=== PATIENT | female | born 1955 | race African-American/Black ===

== ENCOUNTER 2018-02-21 09:26 | Inpatient (IN) | payer MEDICAID ==
[~2018-02-21] VITALS: Ht 157.5 cm; Wt 136.1 kg
[2018-02-21] MEDS ORDERED: MAX25 MT (10:00)
[2018-02-21] MEDS ORDERED: CALC-30 PO (10:00)
[2018-02-21] MEDS ORDERED: LOSA50TA20 PO (10:00)
[2018-02-21] MEDS ORDERED: VERA240C2 PO (10:00)
[2018-02-21] MEDS ORDERED: HYDR-4135 PO (10:00)
[2018-02-21] MEDS ORDERED: ASPI-1158 PO (10:00)
[2018-02-21] MEDS ORDERED: ISOS40TA12 PO (10:00)
[2018-02-21] MEDS ORDERED: DICL25TA2 PO (10:00)
[2018-02-21] MEDS ORDERED: CLON0.3T PO (10:00)
[2018-02-21] MEDS ORDERED: VITA400C73 PO (10:00)
[2018-02-21] MEDS ORDERED: IPRATROPIUM/ALBUTEROL 0.5-3(2.5)MG/3ML NEB HHN ONE (11:15)
[2018-02-21 11:36] LABS: CLARITY URINE CLEAR (CLEAR); COLOR URINE YELLOW (YELLOW); KETONES URINE NEGATIVE (NEGATIVE); LEUKOCYTE ESTERASE URINE NEGATIVE (NEGATIVE); NITRITE URINE NEGATIVE (NEGATIVE); OCCULT BLOOD URINE NEGATIVE (NEGATIVE); PH URINE 7.5 (4.5-8.0); PROTEIN URINE NEGATIVE (NEGATIVE); SPECIFIC GRAVITY URINE 1.013 (1.005-1.030); UROBILINOGEN URINE 0.2 E.U./dL (0.2-1.0)
[2018-02-21 12:39] LABS: BASOPHILS % 0.6 % (0.0-2.0); EOSINOPHILS % 0.1 % (0.0-5.0); HEMATOCRIT. 35.4 % (36.0-48.0); HEMOGLOBIN. 11.3 g/dL (12.0-16.0); MEAN CORPUSCULAR HEMOGLOBIN 27.5 pg (28.0-32.0); MEAN CORPUSCULAR VOLUME 86.2 fL (81.0-99.0); MEAN PLATELET VOLUME 9.4 fl (7.4-10.4); MONOCYTES % 6.2 % (2.0-8.0); NEUTROPHILS % 83.1 % (40.0-76.0); PLATELET 277 x1000/uL (130-400); RED CELL DISTRIBUTION WIDTH 15.3 % (11.6-14.6)
[2018-02-21 12:47] LABS: CHLORIDE 107 mEq/L (98-107)
[2018-02-21 12:49] LABS: PARTIAL THROMBOPLASTIN TIME 26.4 sec (23.4-31.0); PROTHROMBIN TIME 10.2 sec (9.1-11.1)
[2018-02-21] MEDS ORDERED: POTASSIUM CHLORIDE 20MEQ TABLET SR PO ONE (13:45)
[2018-02-21] MEDS ORDERED: IOHEXOL-350 100 ML BOTTLE ONE (15:17)
[2018-02-21] MEDS ORDERED: HYDRALAZINE 20MG/ML VIAL IV ONE (15:30)
[2018-02-21] MEDS ORDERED: ONDANSETRON HCL 4MG/2ML INJ IV PRN (15:30)
[2018-02-21] MEDS ORDERED: IPRATROPIUM/ALBUTEROL 0.5-3(2.5)MG/3ML NEB HHN PRN (15:30)
[2018-02-21] MEDS ORDERED: ACETAMINOPHEN 325MG TABLET PO PRN (15:30)
[2018-02-21] MEDS ORDERED: CLONIDINE 0.3MG TABLET PO ONE (15:30)
[2018-02-21 15:58] LABS: LDL CHOLESTEROL 71 mg/dL (5-100)
[2018-02-21 15:59] LABS: HDL CHOLESTEROL 63 mg/dL (40-59)
[2018-02-21 16:00] LABS: T4 FREE 2.21 ng/dL (0.76-1.46)
[2018-02-21 21:15] VITALS: BP 169/59
[2018-02-21 21:59] VITALS: BP 169/59
[2018-02-21] MEDS ORDERED: ocular lubricant (22:04)
[2018-02-21] MEDS ORDERED: TRAM50TA3 PO (22:04)
[2018-02-21] MEDS ORDERED: POTA10CA42 PO (22:04)
[2018-02-21] MEDS ORDERED: PRAV20TA57 PO (22:04)
[2018-02-21] MEDS ORDERED: MULT-1146 PO (22:06)
[2018-02-21 22:21] LABS: *BENZODIAZEPINES SCREEN URINE NEGATIVE (NEGATIVE); *COCAINE SCREEN URINE NEGATIVE (NEGATIVE); METHADONE URINE SCREEN NEGATIVE (NEGATIVE); OPIATES URINE SCREEN NEGATIVE (NEGATIVE)
[2018-02-21 22:22] LABS: *AMPHETAMINES SCREEN URINE NEGATIVE (NEGATIVE); *BARBITURATES SCREEN URINE NEGATIVE (NEGATIVE); CANNABINOID URINE SCREEN NEGATIVE (NEGATIVE); PHENCYCLIDINE URINE SCREEN NEGATIVE (NEGATIVE)
[2018-02-21] MEDS: FUROSEMIDE 40MG/4ML VIAL IVP SCH (22:30)
[2018-02-21] MEDS: AMLODIPINE 5MG TABLET PO SCH (23:11)
[2018-02-21 23:51] VITALS: BP 180/83
[2018-02-22 04:32] VITALS: BP 179/79
[2018-02-22] MEDS: CLONIDINE 0.1MG TABLET PO PRN ×2 (05:54→12:33)
[2018-02-22 08:00] VITALS: BP 188/88
[2018-02-22] MEDS: POTASSIUM CHLORIDE 20MEQ TABLET SR PO SCH (08:24)
[2018-02-22] MEDS: FUROSEMIDE 40MG/4ML VIAL IVP SCH (08:25)
[2018-02-22] MEDS: AMLODIPINE 5MG TABLET PO SCH ×2 (08:25→20:54)
[2018-02-22] MEDS ORDERED: LOSARTAN POTASSIUM 50 MG TABLET PO NR (08:51)
[2018-02-22] MEDS ORDERED: LOSARTAN POTASSIUM 50 MG TABLET PO SCH (09:00)
[2018-02-22 09:47] LABS: BASOPHILS % 0.3 % (0.0-2.0); EOSINOPHILS % 0.6 % (0.0-5.0); HEMATOCRIT. 35.3 % (36.0-48.0); HEMOGLOBIN. 11.3 g/dL (12.0-16.0); LYMPHOCYTES % 24.2 % (20.0-50.0); MEAN CORPUSCULAR HEMOGLOBIN 27.5 pg (28.0-32.0); MEAN CORPUSCULAR VOLUME 86.2 fL (81.0-99.0); MONOCYTES % 7.6 % (2.0-8.0); NEUTROPHILS % 67.3 % (40.0-76.0); PLATELET 246 x1000/uL (130-400)
[2018-02-22 09:53] LABS: CHLORIDE 108 mEq/L (98-107)
[2018-02-22 12:00] VITALS: BP 179/83
[2018-02-22] MEDS: HYDRALAZINE HCL 100MG TABLET PO SCH ×2 (13:15→21:00)
[2018-02-22] MEDS ORDERED: POTASSIUM CHLORIDE 20MEQ TABLET SR PO NR (14:30)
[2018-02-22 16:00] VITALS: BP 175/80
[2018-02-22] MEDS ORDERED: OMEPRAZOLE 20MG CAPSULE EXTENDED RELEASE PO NR (16:15)
[2018-02-22] MEDS ORDERED: THROAT LOZENGES-BENZOCAINE/MENTH/CETYLPYRD CL LOZENGES MM PRN (16:15)
[2018-02-22] MEDS ORDERED: CLONIDINE 0.2MG TABLET PO PRN (18:00)
[2018-02-22 20:31] VITALS: BP 165/76
[2018-02-22] MEDS: PROPRANOLOL HCL 20MG TABLET PO SCH (20:55)
[2018-02-22] MEDS: CLONIDINE 0.1MG TABLET PO SCH (21:00)
[2018-02-23 00:30] VITALS: BP 172/87
[2018-02-23 04:40] VITALS: BP 162/82
[2018-02-23] MEDS: HYDRALAZINE HCL 100MG TABLET PO SCH ×2 (05:31→14:00)
[2018-02-23] MEDS: CLONIDINE 0.1MG TABLET PO SCH (05:31)
[2018-02-23 08:00] VITALS: BP 178/72
[2018-02-23] MEDS ORDERED: LOSARTAN POTASSIUM 100 MG TABLET PO SCH (09:00)
[2018-02-23] MEDS ORDERED: METHIMAZOLE 5MG TABLET PO SCH (09:00)
[2018-02-23] MEDS ORDERED: FUROSEMIDE 40MG TABLET PO SCH (09:00)
[2018-02-23] MEDS: POTASSIUM CHLORIDE 20MEQ TABLET SR PO SCH (09:05)
[2018-02-23] MEDS: AMLODIPINE 5MG TABLET PO SCH (09:05)
[2018-02-23] MEDS: PROPRANOLOL HCL 20MG TABLET PO SCH (09:07)
[2018-02-23] MEDS ORDERED: ENOXAPARIN 40MG/0.4ML SYR SUBCUT SCH (09:30)
[2018-02-23 12:00] VITALS: BP 171/77
[2018-02-23 13:00] LABS: BASOPHILS % 1.3 % (0.0-2.0); EOSINOPHILS % 0.9 % (0.0-5.0); HEMATOCRIT. 35.2 % (36.0-48.0); HEMOGLOBIN. 11.2 g/dL (12.0-16.0); MEAN CORPUSCULAR HEMOGLOBIN 27.6 pg (28.0-32.0); MEAN CORPUSCULAR VOLUME 86.8 fL (81.0-99.0); MEAN PLATELET VOLUME 8.8 fl (7.4-10.4); MONOCYTES % 9.1 % (2.0-8.0); NEUTROPHILS % 70.7 % (40.0-76.0); PLATELET 236 x1000/uL (130-400); RED BLOOD CELL COUNT 4.06 mill/uL (4.2-5.4)
[2018-02-23 13:03] LABS: CHLORIDE 107 mEq/L (98-107)
[2018-02-23] MEDS ORDERED: CLONIDINE 0.2MG TABLET PO SCH (14:00)
[2018-02-24 09:06] LABS: LUTEINIZING HORMONE 22.2 mIU/mL (.)
[2018-03-08 13:06] LABS: ANDROSTENEDIONE <10 ng/dL (41-262); FOLICLE STIMULATING HORMONE 26.6 mIU/mL (.); TESTOSTERONE FREE 0.7 pg/mL (0.0-4.2)
== END 2018-02-23 16:15 | disposition home or self-care (01) | DRG 199 ==
LOC: ER 13:23 → 6WST 13:31 → EDBEDREQTM 13:34 → EDBEDREQ 13:34 → ENRESERV 19:47
PROVIDERS: ADMIT Internal Medicine; ATTEND Internal Medicine
DX: I16.0 Hypertensive urgency (principal); J96.00 Acute respiratory failure, unspecified whether with hypoxia or hypercapnia; R65.11 Systemic inflammatory response syndrome (SIRS) of non-infectious origin with acute organ dysfunction; E05.20 Thyrotoxicosis with toxic multinodular goiter without thyrotoxic crisis or storm; Z68.43 Body mass index [BMI] 50.0-59.9, adult; E66.01 Morbid (severe) obesity due to excess calories; K21.9 Gastro-esophageal reflux disease without esophagitis; H26.9 Unspecified cataract; E87.6 Hypokalemia; I11.9 Hypertensive heart disease without heart failure; D64.9 Anemia, unspecified; E78.5 Hyperlipidemia, unspecified; M19.90 Unspecified osteoarthritis, unspecified site; Z79.82 Long term (current) use of aspirin; Z79.899 Other long term (current) drug therapy
CPT/HCPCS: 36415; 71045; 71275; 76536; 80048; 80061; 80305; 82088; 82157; 82533; 83001; 83002; 83036; 83520; 83735; 83880; 84402; 84403; 84439; 84443; 84481; 84484; 86376; 93005; 93306; 93971; 94640; 96374; 99285; J0360; J1650; J1940; J7620; Q9967

== ENCOUNTER 2019-02-15 17:25 | Inpatient (IN) | payer MEDICAID ==
[~2019-02-15] VITALS: Ht 157.5 cm; Wt 116.2 kg
[~2019-02-15 17:25] MED LIST: ASPI-1158 PO; CALC-30 PO; CLON0.3T PO; DICL25TA2 PO; HYDR-4135 PO; ISOS40TA12 PO; LOSA50TA41 PO; MAX25 MT; MULT-1146 PO; POTA10CA42 PO; PRAV20TA57 PO; TRAM50TA3 PO; VERA240C2 PO; VITA400C73 PO; ocular lubricant
[2019-02-15] MEDS ORDERED: HYDRALAZINE HCL 100MG TABLET PO STA (19:41)
[2019-02-15] MEDS ORDERED: KETOROLAC 30MG/ML VIAL IV STA (19:41)
[2019-02-15] MEDS ORDERED: HYDROCODONE/ACETAMINOPHEN 5/325MG TABLET PO STA (19:41)
[2019-02-15 21:47] LABS: BASOPHILS % 1.4 % (0.0-2.0); EOSINOPHILS % 0.4 % (0.0-5.0); HEMATOCRIT. 33.8 % (36.0-48.0); HEMOGLOBIN. 10.9 g/dL (12.0-16.0); LYMPHOCYTES % 23.3 % (20.0-50.0); MEAN CORPUSCULAR HEMOGLOBIN 26.4 pg (28.0-32.0); MEAN CORPUSCULAR VOLUME 81.6 fL (81.0-99.0); MEAN PLATELET VOLUME 8.7 fl (7.4-10.4); MONOCYTES % 5.2 % (2.0-8.0); NEUTROPHILS % 69.7 % (40.0-76.0); PLATELET 256 x1000/uL (130-400); RED BLOOD CELL COUNT 4.14 mill/uL (4.2-5.4)
[2019-02-15 21:51] LABS: CHLORIDE 107 mEq/L (98-107)
[2019-02-15 22:02] LABS: T4 FREE 1.65 ng/dL (0.76-1.46)
[2019-02-15] MEDS ORDERED: ASPIRIN 325MG TABLET PO ONE (22:30)
[2019-02-16 08:20] VITALS: BP 201/78
[2019-02-16 09:00] VITALS: BP 201/78
[2019-02-16] MEDS ORDERED: METH10TA7 MT (09:28)
[2019-02-16] MEDS ORDERED: DOCU-138 MT (09:28)
[2019-02-16] MEDS ORDERED: POTASSIUM CHLORIDE 20MEQ TABLET SR PO NR (09:30)
[2019-02-16] MEDS ORDERED: ACETAMINOPHEN 325MG TABLET PO PRN (09:30)
[2019-02-16] MEDS ORDERED: ONDANSETRON HCL 4MG/2ML INJ IV PRN (09:30)
[2019-02-16] MEDS ORDERED: HYDROCODONE/ACETAMINOPHEN 5/325MG TABLET PO PRN (09:30)
[2019-02-16] MEDS: CLONIDINE 0.1MG TABLET PO PRN (09:44)
[2019-02-16 11:32] LABS: CLARITY URINE CLEAR (CLEAR); COLOR URINE YELLOW (YELLOW); KETONES URINE 2+ (NEGATIVE); LEUKOCYTE ESTERASE URINE NEGATIVE (NEGATIVE); NITRITE URINE NEGATIVE (NEGATIVE); OCCULT BLOOD URINE NEGATIVE (NEGATIVE); PROTEIN URINE 2+ (NEGATIVE); SPECIFIC GRAVITY URINE 1.015 (1.005-1.030)
[2019-02-16 11:54] LABS: *AMPHETAMINES SCREEN URINE NEGATIVE (NEGATIVE); *BARBITURATES SCREEN URINE NEGATIVE (NEGATIVE); *BENZODIAZEPINES SCREEN URINE NEGATIVE (NEGATIVE); *COCAINE SCREEN URINE NEGATIVE (NEGATIVE); CANNABINOID URINE SCREEN NEGATIVE (NEGATIVE); OPIATES URINE SCREEN NEGATIVE (NEGATIVE); PHENCYCLIDINE URINE SCREEN NEGATIVE (NEGATIVE)
[2019-02-16 11:55] LABS: METHADONE URINE SCREEN NEGATIVE (NEGATIVE)
[2019-02-16 12:00] VITALS: BP 166/81
[2019-02-16] MEDS ORDERED: LOSARTAN POTASSIUM 50 MG TABLET PO SCH (12:45)
[2019-02-16] MEDS ORDERED: ENOXAPARIN 40MG/0.4ML SYR SUBCUT SCH (14:00)
[2019-02-16] MEDS: METHIMAZOLE 5MG TABLET PO SCH ×2 (14:45→18:03)
[2019-02-16] MEDS: KETOROLAC 30MG/ML VIAL IV PRN ×2 (14:45→21:08)
[2019-02-16] MEDS: DOCUSATE SODIUM 250MG CAPSULE PO SCH (14:55)
[2019-02-16] MEDS: CLONIDINE 0.2MG TABLET PO SCH ×2 (15:37→21:07)
[2019-02-16 16:00] VITALS: BP 175/79
[2019-02-16 20:00] VITALS: BP 170/80
[2019-02-16] MEDS: LOSARTAN POTASSIUM 50 MG TABLET PO SCH (21:07)
[2019-02-16] MEDS: FAMOTIDINE 20MG TABLET PO SCH (21:07)
[2019-02-16] MEDS: METOPROLOL TARTRATE 50MG TABLET PO SCH (21:07)
[2019-02-16] MEDS: ENOXAPARIN 30MG/0.3ML SYR SUBCUT SCH (21:08)
[2019-02-17] VITALS: BP 120/84
[2019-02-17] MEDS: KETOROLAC 30MG/ML VIAL IV PRN (03:22)
[2019-02-17 04:00] VITALS: BP 189/85
[2019-02-17] MEDS: CLONIDINE 0.2MG TABLET PO SCH (05:53)
[2019-02-17] MEDS: METHIMAZOLE 5MG TABLET PO SCH ×3 (05:53→21:07)
[2019-02-17 07:23] LABS: BASOPHILS % 0.5 % (0.0-2.0); EOSINOPHILS % 2.6 % (0.0-5.0); HEMATOCRIT. 31.8 % (36.0-48.0); HEMOGLOBIN. 10.3 g/dL (12.0-16.0); LYMPHOCYTES % 22.5 % (20.0-50.0); MEAN CORPUSCULAR HEMOGLOBIN 26.4 pg (28.0-32.0); MEAN PLATELET VOLUME 8.3 fl (7.4-10.4); MONOCYTES % 10.2 % (2.0-8.0); NEUTROPHILS % 64.2 % (40.0-76.0); PLATELET 219 x1000/uL (130-400); RED BLOOD CELL COUNT 3.88 mill/uL (4.2-5.4); RED CELL DISTRIBUTION WIDTH 14.9 % (11.6-14.6)
[2019-02-17 08:00] VITALS: BP 197/87
[2019-02-17 08:03] LABS: CHLORIDE 110 mEq/L (98-107)
[2019-02-17] MEDS: DOCUSATE SODIUM 250MG CAPSULE PO SCH (08:47)
[2019-02-17] MEDS: ASPIRIN 81MG TABLET PO SCH (08:47)
[2019-02-17] MEDS: LOSARTAN POTASSIUM 50 MG TABLET PO SCH ×2 (08:47→21:07)
[2019-02-17] MEDS: METOPROLOL TARTRATE 50MG TABLET PO SCH ×2 (08:47→21:06)
[2019-02-17] MEDS: ENOXAPARIN 30MG/0.3ML SYR SUBCUT SCH ×2 (08:51→21:05)
[2019-02-17] MEDS: CLONIDINE 0.1MG TABLET PO PRN (09:22)
[2019-02-17] MEDS ORDERED: POTASSIUM CHLORIDE 20MEQ TABLET SR PO NR (10:15)
[2019-02-17] MEDS ORDERED: POTASSIUM CHLORIDE INJ 40 MEQ in DEXT 5% WATER 250 ML IV NR (11:00)
[2019-02-17 11:20] LABS: T4 FREE 1.63 ng/dL (0.76-1.46)
[2019-02-17 12:12] VITALS: BP 198/76
[2019-02-17] MEDS: CLONIDINE 0.3MG TABLET PO SCH ×2 (13:03→21:06)
[2019-02-17 16:14] VITALS: BP 187/79
[2019-02-17 20:00] VITALS: BP 197/78
[2019-02-17] MEDS: HYDRALAZINE HCL 50MG TABLET PO SCH (21:06)
[2019-02-17] MEDS: FAMOTIDINE 20MG TABLET PO SCH (21:07)
[2019-02-18] VITALS: BP 195/87
[2019-02-18 00:01] LABS: CREATINE KINASE MB FRACTION 1.3 ng/mL (0.5-3.6)
[2019-02-18] MEDS: CLONIDINE 0.1MG TABLET PO PRN ×3 (01:09→17:11)
[2019-02-18] MEDS: HYDRALAZINE 20MG/ML VIAL IV PRN ×2 (02:04→12:08)
[2019-02-18 04:00] VITALS: BP 207/84
[2019-02-18] MEDS: METHIMAZOLE 5MG TABLET PO SCH ×2 (06:08→13:46)
[2019-02-18] MEDS: CLONIDINE 0.3MG TABLET PO SCH ×2 (06:11→13:46)
[2019-02-18] MEDS ORDERED: POLY15DR31 EACHEYE (06:30)
[2019-02-18] MEDS ORDERED: PROP10TA10 PO (06:30)
[2019-02-18] MEDS ORDERED: ISOS120T9 PO (06:30)
[2019-02-18 06:32] LABS: BASOPHILS % 0.8 % (0.0-2.0); EOSINOPHILS % 2.8 % (0.0-5.0); HEMATOCRIT. 33.4 % (36.0-48.0); LYMPHOCYTES % 27.6 % (20.0-50.0); MEAN CORPUSCULAR HEMOGLOBIN 26.5 pg (28.0-32.0); MEAN CORPUSCULAR VOLUME 80.6 fL (81.0-99.0); MEAN PLATELET VOLUME 8.1 fl (7.4-10.4); MONOCYTES % 11.2 % (2.0-8.0); NEUTROPHILS % 57.6 % (40.0-76.0); PLATELET 205 x1000/uL (130-400); RED BLOOD CELL COUNT 4.15 mill/uL (4.2-5.4); RED CELL DISTRIBUTION WIDTH 15.1 % (11.6-14.6)
[2019-02-18 06:41] LABS: CHLORIDE 108 mEq/L (98-107)
[2019-02-18 06:51] LABS: CREATINE KINASE 61 IU/L (26-192)
[2019-02-18 06:52] LABS: CREATINE KINASE MB FRACTION < 1.0 ng/mL (0.5-3.6)
[2019-02-18 08:00] VITALS: BP 189/74
[2019-02-18] MEDS: ENOXAPARIN 30MG/0.3ML SYR SUBCUT SCH (09:08)
[2019-02-18] MEDS: DOCUSATE SODIUM 250MG CAPSULE PO SCH (09:08)
[2019-02-18] MEDS: METOPROLOL TARTRATE 50MG TABLET PO SCH (09:09)
[2019-02-18] MEDS: HYDRALAZINE HCL 50MG TABLET PO SCH (09:09)
[2019-02-18] MEDS: ASPIRIN 81MG TABLET PO SCH (09:09)
[2019-02-18] MEDS: LOSARTAN POTASSIUM 50 MG TABLET PO SCH (09:09)
[2019-02-18] MEDS ORDERED: POTASSIUM CHLORIDE 20MEQ TABLET SR PO NR (10:00)
[2019-02-18] MEDS ORDERED: POTASSIUM CHLORIDE INJ 40 MEQ in DEXT 5% WATER 250 ML IV NR (10:30)
[2019-02-18] MEDS ORDERED: REGADENOSON 0.4 MG/5 ML IV NR (10:30)
[2019-02-18] MEDS ORDERED: LABETALOL 5MG/ML SYR 20 MG/4 ML SYRINGE IV NR ×2 (12:00→18:30)
[2019-02-18] MEDS ORDERED: POTASSIUM CHLORIDE 20MEQ TABLET SR PO SCH (12:00)
[2019-02-18 12:46] VITALS: BP 214/93
[2019-02-18] MEDS ORDERED: ISOSORBIDE MONONITRATE 120MG TABLET SR 24HR PO SCH (13:30)
[2019-02-18] MEDS ORDERED: HYDRALAZINE HCL 100MG TABLET PO SCH (14:00)
[2019-02-18] MEDS ORDERED: VERAPAMIL HCL 120MG TABLET PO SCH (14:00)
[2019-02-18 16:00] VITALS: BP 167/79
[2019-02-18] MEDS ORDERED: TAP5 PO (17:13)
[2019-02-18] MEDS ORDERED: HYDR-4001 MT (17:13)
[2019-02-18 19:24] VITALS: BP 130/61
[2019-02-18] MEDS ORDERED: METOPROLOL TARTRATE 100MG TABLET PO SCH (21:00)
[2019-02-19] MEDS ORDERED: ISOSORBIDE MONONITRATE 120MG TABLET SR 24HR PO SCH (09:00)
[2019-02-19] MEDS ORDERED: POTASSIUM CHLORIDE 20MEQ TABLET SR PO SCH (09:00)
[2019-02-24 04:08] LABS: METANEPHRINE PLASMA 29 pg/mL (0-62); NORMETANEPHRINE PLASMA 38 pg/mL (0-145)
== END 2019-02-18 19:47 | disposition home or self-care (01) | DRG 190 ==
LOC: ER 17:25 → 6WST 22:48 → ENRESERV 02-16 07:46
PROVIDERS: ADMIT Internal Medicine; ATTEND Internal Medicine
DX: I21.4 Non-ST elevation (NSTEMI) myocardial infarction (principal); E11.65 Type 2 diabetes mellitus with hyperglycemia; E87.6 Hypokalemia; E66.01 Morbid (severe) obesity due to excess calories; D64.9 Anemia, unspecified; E05.00 Thyrotoxicosis with diffuse goiter without thyrotoxic crisis or storm; E78.5 Hyperlipidemia, unspecified; M79.89 Other specified soft tissue disorders; M17.2 Bilateral post-traumatic osteoarthritis of knee; Z53.29 Procedure and treatment not carried out because of patient's decision for other reasons; N63.0 Unspecified lump in unspecified breast; E78.00 Pure hypercholesterolemia, unspecified; I10 Essential (primary) hypertension; M10.9 Gout, unspecified; Z82.49 Family history of ischemic heart disease and other diseases of the circulatory system; Z68.42 Body mass index [BMI] 45.0-49.9, adult; Z91.14 Patient's other noncompliance with medication regimen; Z79.899 Other long term (current) drug therapy; Z71.3 Dietary counseling and surveillance
CPT/HCPCS: 36415; 71045; 78582; 80048; 80053; 80061; 80305; 81003; 82088; 82533; 82550; 82553; 83036; 83735; 83835; 83880; 84100; 84132; 84244; 84439; 84443; 84484; 85025; 85379; 93005; 93306; 93970; 93971; 96374; 97162; 99285; A9558; J0360; J1650; J1885; J3480; J3490; J7060

== ENCOUNTER 2024-07-07 13:30 | Inpatient (IN) | payer MEDICARE, MEDICAID ==
[~2024-07-07] VITALS: Ht 152.4 cm; Wt 149.5 kg
[~2024-07-07 13:30] MED LIST changes: -ASPI-1158 PO; +ASPI-1406 PO; -CALC-30 PO; -CLON0.3T PO; -DICL25TA2 PO; +FOLI-43 PO; +FURO20TA4 MT; -HYDR-4135 PO; +HYDR50TA39 PO; +ISOS120T13 PO; -ISOS40TA12 PO; +LIP40 PO; -MAX25 MT; -POTA10CA42 PO; -PRAV20TA57 PO; +SPIR25TA6 PO; -TRAM50TA3 PO; -VITA400C73 PO; -ocular lubricant
[2024-07-07] MEDS: NITROGLYCERIN OINT 1GM/INCH UDPKT TD ONE (14:38)
[2024-07-07 14:50] VITALS: PULSE 83; RESP 20; O2SAT 99
[2024-07-07] MEDS: IPRATROPIUM BROMIDE (0.02%) 0.5MG/2.5ML NEB HHN STA (14:50)
[2024-07-07] MEDS: ALBUTEROL (0.083%) 2.5MG/3ML NEB HHN STA (14:50)
[2024-07-07 14:56] LABS: BG BASE EXCESS 8.9 mmol/L (-2.0-3.0); BG CARBOXYHEMOGLOBIN 1.7 % (0.5-1.5); BG DEOXYHEMOGLOBIN 1.6 % (0.0-5.0); BG FRACTION INSPIRED OXYGEN 80; BG HCO3 ACT 38.8 mmol/L (21.0-28.0); BG METHEMOGLOBIN 0.3 % (0.5-1.5); BG OXYGEN SATURATION 98.4 % (94.0-98.0); BG OXYHEMOGLOBIN 96.4 % (94.0-98.0); BG PCO2 89.4 mmHg (32.0-45.0); BG PH 7.255 (7.350-7.450); BG PO2 129.1 mmHg (83.0-108.0); BG SAMPLE SITE RIGHT RADIAL; BG TOTAL HEMOGLOBIN 11.1 g/dL (12.0-16.0); BG VENT MODE MASK - NRB-PARTIAL
[2024-07-07] MEDS: FUROSEMIDE 100MG/10ML VIAL IVP ONE (15:19)
[2024-07-07 15:24] LABS: CHLORIDE 104 mEq/L (98-107); POTASSIUM 4.6 mEq/L (3.5-5.1); SODIUM 143 mEq/L (136-145)
[2024-07-07 15:25] LABS: CARBON DIOXIDE 34 mEq/L (21-32)
[2024-07-07 15:26] LABS: CALCIUM 9.1 mg/dL (8.7-10.4)
[2024-07-07 15:31] LABS: CREATININE 1.3 mg/dL (0.6-1.0); ETHANOL BLOOD < 10 mg/dL (<10); GLUCOSE 130 mg/dL (70-105); TROPONIN I HIGH SENSITIVITY 31 ng/L (3.0-34); UREA NITROGEN BLOOD 24 mg/dL (9-23)
[2024-07-07 16:49] LABS: BASOPHILS % 0.2 % (0.0-2.0); LYMPHOCYTES % 8.9 % (20.0-50.0); MEAN CORPUSCULAR HEMOGLOBIN 27.3 pg (28.0-32.0); MEAN CORPUSCULAR HGB CONC 31.1 g/dL (31.0-37.0); MEAN CORPUSCULAR VOLUME 87.6 fL (81.0-99.0); MEAN PLATELET VOLUME 8.5 fl (7.4-10.4); MONOCYTES % 8.5 % (2.0-8.0); NEUTROPHILS % 82.4 % (40.0-76.0); PLATELET 238 x1000/uL (130-400); RED BLOOD CELL COUNT 3.66 mill/uL (4.2-5.4); RED CELL DISTRIBUTION WIDTH 17.2 % (11.6-14.6); WHITE BLOOD COUNT 8.8 x1000/uL (4.5-11.0)
[2024-07-07 20:00] VITALS: BP 163/85; PULSE 89; RESP 16; TEMP 36.2; O2SAT 85
[2024-07-07 21:02] VITALS: BP 163/85; PULSE 89; RESP 20; TEMP 36.3
[2024-07-07] MEDS: ATORVASTATIN CALCIUM 40MG TABLET PO SCH (21:46)
[2024-07-07] MEDS: HYDRALAZINE HCL 50MG TABLET PO SCH (21:46)
[2024-07-07] MEDS: LOSARTAN 50 MG TABLET PO SCH (21:47)
[2024-07-07 22:20] LABS: HEPATITIS B SURFACE ANTIGEN NEGATIVE (Negative)
[2024-07-07 22:41] LABS: HEPATITIS C AB NON REACTIVE (Neg) (Negative)
[2024-07-08] VITALS (16 sets, daily range): BP systolic 115–165; BP diastolic 56–85; PULSE 81–97; RESP 16–38; TEMP 36.1–36.7; O2SAT 16–98
[2024-07-08] MEDS: ASPIRIN 81MG TABLET PO SCH (09:36)
[2024-07-08] MEDS: SPIRONOLACTONE 25MG TABLET PO SCH (09:37)
[2024-07-08] MEDS: MULTIVITAMINS,THER W-MINERALS TABLET PO SCH (09:37)
[2024-07-08] MEDS: FOLIC ACID 1MG TABLET PO SCH (09:37)
[2024-07-08] MEDS: FUROSEMIDE 40MG TABLET PO SCH (09:37)
[2024-07-08] MEDS: ISOSORBIDE MONONITRATE 60MG TABLET SR 24HR PO SCH (09:38)
[2024-07-08] MEDS ORDERED: FUROSEMIDE 40MG/4ML VIAL IVP SCH (11:45)
[2024-07-08] MEDS: METOLAZONE 2.5MG TABLET PO NR (12:50)
[2024-07-08] MEDS: LIDOCAINE HCL 1% 10 MG/ML 10ML VIAL ONE (12:58)
[2024-07-08 13:04] LABS: BG CARBOXYHEMOGLOBIN 1.2 % (0.5-1.5); BG DEOXYHEMOGLOBIN 13.3 % (0.0-5.0); BG FRACTION INSPIRED OXYGEN 50; BG HCO3 ACT 39.8 mmol/L (21.0-28.0); BG METHEMOGLOBIN 0.3 % (0.5-1.5); BG OXYGEN SATURATION 86.5 % (94.0-98.0); BG OXYHEMOGLOBIN 85.2 % (94.0-98.0); BG PCO2 114.8 mmHg (32.0-45.0); BG PH 7.158 (7.350-7.450); BG PO2 56.7 mmHg (83.0-108.0); BG SAMPLE SITE LEFT RADIAL; BG TOTAL HEMOGLOBIN 10.8 g/dL (12.0-16.0); BG TOTAL RESPIRATORY RATE 40 b/min; BG VENT MODE MASK - BIPAP
[2024-07-08] MEDS: IPRATROPIUM/ALBUTEROL 0.5-3(2.5)MG/3ML NEB HHN SCH (14:54)
[2024-07-08 15:15] LABS: BG BASE EXCESS 9.3 mmol/L (-2.0-3.0); BG CARBOXYHEMOGLOBIN 1.2 % (0.5-1.5); BG DEOXYHEMOGLOBIN 9.2 % (0.0-5.0); BG FRACTION INSPIRED OXYGEN 70; BG HCO3 ACT 41.2 mmol/L (21.0-28.0); BG OXYGEN SATURATION 90.7 % (94.0-98.0); BG OXYHEMOGLOBIN 89.6 % (94.0-98.0); BG PCO2 115.5 mmHg (32.0-45.0); BG PO2 63.9 mmHg (83.0-108.0); BG SAMPLE SITE LEFT RADIAL; BG TOTAL HEMOGLOBIN 10.9 g/dL (12.0-16.0); BG TOTAL RESPIRATORY RATE 38 b/min; BG VENT MODE MASK - BIPAP
[2024-07-08] MEDS: FUROSEMIDE 40MG/4ML VIAL IVP SCH (17:54)
[2024-07-08 22:16] LABS: BG BASE EXCESS 9.4 mmol/L (-2.0-3.0); BG CARBOXYHEMOGLOBIN 0.9 % (0.5-1.5); BG FRACTION INSPIRED OXYGEN 100; BG HCO3 ACT 39.8 mmol/L (21.0-28.0); BG METHEMOGLOBIN 0.3 % (0.5-1.5); BG OXYGEN SATURATION 93.9 % (94.0-98.0); BG OXYHEMOGLOBIN 92.8 % (94.0-98.0); BG PCO2 97.4 mmHg (32.0-45.0); BG PH 7.229 (7.350-7.450); BG PO2 73.4 mmHg (83.0-108.0); BG SAMPLE SITE RIGHT RADIAL; BG TOTAL HEMOGLOBIN 10.6 g/dL (12.0-16.0); BG VENT MODE HIGH FLOW
[2024-07-09] VITALS (69 sets, daily range): BP systolic 123–182; BP diastolic 59–101; PULSE 79–119; RESP 12–34; TEMP 36.7–37.1; O2SAT 89–97
[2024-07-09 06:36] LABS: POTASSIUM 5.3 mEq/L (3.5-5.1)
[2024-07-09 06:37] LABS: CALCIUM 8.9 mg/dL (8.7-10.4)
[2024-07-09 06:41] LABS: CREATININE 1.3 mg/dL (0.6-1.0)
[2024-07-09] MEDS: SODIUM POLYSTYRENE SULFONATE 15 G/60 ML BOT PO SCH (11:55)
[2024-07-09] MEDS: NITROGLYCERIN OINT 1GM/INCH UDPKT TD SCH (11:56)
[2024-07-09 14:08] LABS: BG BASE EXCESS 8.6 mmol/L (-2.0-3.0); BG CARBOXYHEMOGLOBIN 0.6 % (0.5-1.5); BG DEOXYHEMOGLOBIN 2.6 % (0.0-5.0); BG FRACTION INSPIRED OXYGEN 100; BG HCO3 ACT 36.4 mmol/L (21.0-28.0); BG METHEMOGLOBIN 0.3 % (0.5-1.5); BG OXYGEN SATURATION 97.4 % (94.0-98.0); BG OXYHEMOGLOBIN 96.5 % (94.0-98.0); BG PCO2 75.5 mmHg (32.0-45.0); BG PH 7.301 (7.350-7.450); BG PO2 100.6 mmHg (83.0-108.0); BG SAMPLE SITE LEFT RADIAL; BG TOTAL HEMOGLOBIN 8.1 g/dL (12.0-16.0); BG VENT MODE MASK - BIPAP
[2024-07-09] MEDS: HYDRALAZINE HCL 50MG TABLET PO SCH (16:47)
[2024-07-09] MEDS: HYDRALAZINE 20MG/ML VIAL IV PRN (20:24)
[2024-07-10] VITALS (75 sets, daily range): BP systolic 100–185; BP diastolic 56–90; PULSE 108–122; RESP 14–32; TEMP 36.4–37.7; O2SAT 92–99
[2024-07-10 05:43] LABS: POTASSIUM 3.5 mEq/L (3.5-5.1)
[2024-07-10 05:44] LABS: CALCIUM 9.1 mg/dL (8.7-10.4)
[2024-07-10 05:46] LABS: BASOPHILS % 0.2 % (0.0-2.0); DIFFERENTIAL COMMENT 0; EOSINOPHILS % 0.2 % (0.0-5.0); HEMOGLOBIN. 9.5 g/dL (12.0-16.0); LYMPHOCYTES % 9.1 % (20.0-50.0); MEAN CORPUSCULAR HEMOGLOBIN 26.3 pg (28.0-32.0); MEAN CORPUSCULAR HGB CONC 29.7 g/dL (31.0-37.0); MEAN CORPUSCULAR VOLUME 88.5 fL (81.0-99.0); MEAN PLATELET VOLUME 9.3 fl (7.4-10.4); MONOCYTES % 8.6 % (2.0-8.0); NEUTROPHILS % 81.9 % (40.0-76.0); PLATELET 219 x1000/uL (130-400); RED BLOOD CELL COUNT 3.62 mill/uL (4.2-5.4); RED CELL DISTRIBUTION WIDTH 17.1 % (11.6-14.6); WHITE BLOOD COUNT 12.3 x1000/uL (4.5-11.0)
[2024-07-10 05:50] LABS: CREATININE 1.2 mg/dL (0.6-1.0)
[2024-07-10] MEDS: CLONIDINE 0.1MG TABLET PO SCH (08:17)
[2024-07-10] MEDS: KCL 20MEQ/100ML PREMIX 100 ML IV SCH (08:17)
[2024-07-10 09:31] LABS: BG BASE EXCESS 11.8 mmol/L (-2.0-3.0); BG DEOXYHEMOGLOBIN 0.9 % (0.0-5.0); BG FRACTION INSPIRED OXYGEN 100; BG HCO3 ACT 39.1 mmol/L (21.0-28.0); BG METHEMOGLOBIN 0.2 % (0.5-1.5); BG OXYGEN SATURATION 99.1 % (94.0-98.0); BG OXYHEMOGLOBIN 97.9 % (94.0-98.0); BG PH 7.371 (7.350-7.450); BG PO2 136.3 mmHg (83.0-108.0); BG SAMPLE SITE RIGHT RADIAL; BG TOTAL HEMOGLOBIN 9.9 g/dL (12.0-16.0); BG VENT MODE MASK - BIPAP
[2024-07-10] MEDS: CEFTRIAXONE 1GM/50ML 50 ML IV SCH (11:33)
[2024-07-10] MEDS: AZITHROMYCIN 500MG/250ML 250 ML IV SCH (11:33)
[2024-07-10 12:54] LABS: *AMPHETAMINES SCREEN URINE NEGATIVE (NEGATIVE); *BARBITURATES SCREEN URINE NEGATIVE (NEGATIVE); *BENZODIAZEPINES SCREEN URINE NEGATIVE (NEGATIVE); *COCAINE SCREEN URINE NEGATIVE (NEGATIVE); CANNABINOID URINE SCREEN NEGATIVE (NEGATIVE); ECSTASY MDMA SCREEN URINE NEGATIVE (NEGATIVE); METHADONE URINE SCREEN NEGATIVE (NEGATIVE); OPIATES URINE SCREEN NEGATIVE (NEGATIVE); PHENCYCLIDINE URINE SCREEN NEGATIVE (NEGATIVE)
[2024-07-11] VITALS (68 sets, daily range): BP systolic 67–182; BP diastolic 37–128; PULSE 89–127; RESP 18–46; TEMP 36.4–38.2; O2SAT 79–100
[2024-07-11 01:10] LABS: BG BASE EXCESS 6.8 mmol/L (-2.0-3.0); BG CARBOXYHEMOGLOBIN 1.3 % (0.5-1.5); BG DEOXYHEMOGLOBIN 7.2 % (0.0-5.0); BG FRACTION INSPIRED OXYGEN 100; BG METHEMOGLOBIN 0.1 % (0.5-1.5); BG OXYGEN SATURATION 92.7 % (94.0-98.0); BG OXYHEMOGLOBIN 91.4 % (94.0-98.0); BG PH 7.305 (7.350-7.450); BG PO2 67.3 mmHg (83.0-108.0); BG SAMPLE SITE RIGHT RADIAL; BG TOTAL HEMOGLOBIN 10.8 g/dL (12.0-16.0); BG VENT MODE MASK - BIPAP
[2024-07-11 05:40] LABS: HEMATOCRIT. 31.7 % (36.0-48.0); HEMOGLOBIN. 9.4 g/dL (12.0-16.0); MEAN CORPUSCULAR HEMOGLOBIN 26.5 pg (28.0-32.0); MEAN CORPUSCULAR HGB CONC 29.5 g/dL (31.0-37.0); MEAN CORPUSCULAR VOLUME 89.7 fL (81.0-99.0); MEAN PLATELET VOLUME 9.7 fl (7.4-10.4); PLATELET 217 x1000/uL (130-400); RED BLOOD CELL COUNT 3.54 mill/uL (4.2-5.4); RED CELL DISTRIBUTION WIDTH 18.1 % (11.6-14.6); WHITE BLOOD COUNT 14.8 x1000/uL (4.5-11.0)
[2024-07-11 05:50] LABS: CARBON DIOXIDE 38 mEq/L (21-32); CHLORIDE 102 mEq/L (98-107); POTASSIUM 3.7 mEq/L (3.5-5.1); SODIUM 150 mEq/L (136-145)
[2024-07-11 05:51] LABS: CALCIUM 9.1 mg/dL (8.7-10.4)
[2024-07-11 05:56] LABS: GLUCOSE 80 mg/dL (70-105); UREA NITROGEN BLOOD 24 mg/dL (9-23)
[2024-07-11 06:45] LABS: DIFFERENTIAL COMMENT 1
[2024-07-11 08:51] LABS: BG BASE EXCESS 10.5 mmol/L (-2.0-3.0); BG CARBOXYHEMOGLOBIN 0.9 % (0.5-1.5); BG DEOXYHEMOGLOBIN 10.2 % (0.0-5.0); BG FRACTION INSPIRED OXYGEN 100; BG HCO3 ACT 39.3 mmol/L (21.0-28.0); BG METHEMOGLOBIN 0.3 % (0.5-1.5); BG OXYGEN SATURATION 89.7 % (94.0-98.0); BG OXYHEMOGLOBIN 88.6 % (94.0-98.0); BG PCO2 80.1 mmHg (32.0-45.0); BG PH 7.309 (7.350-7.450); BG PO2 60.6 mmHg (83.0-108.0); BG SAMPLE SITE RIGHT RADIAL; BG TOTAL HEMOGLOBIN 10.8 g/dL (12.0-16.0); BG VENT MODE MASK - BIPAP
[2024-07-11 09:49] LABS: ANISOCYTOSIS 1+; HYPOCHROMASIA 1+; PLATELET ESTIMATE NORMAL
[2024-07-11] MEDS ORDERED: ETOMIDATE 2MG/ML 10ML VIAL IV ONE (13:00)
[2024-07-11] MEDS ORDERED: ROCURONIUM BROMIDE 10MG/ML VIAL 5ML IV ONE (13:00)
[2024-07-11] MEDS ORDERED: FENTANYL CITRATE/PF 2,500 MCG in SODIUM CHLORIDE 0.9% 200 ML IV PRN (13:30)
[2024-07-11] MEDS: NOREPINEPHRINE 8MG/250ML PMX 250 ML IV PRN (13:32)
[2024-07-11] MEDS: PROPOFOL 10MG/ML 100ML 100 ML IV PRN (13:47)
[2024-07-11 14:46] LABS: BG BASE EXCESS 9.6 mmol/L (-2.0-3.0); BG CARBOXYHEMOGLOBIN 1.2 % (0.5-1.5); BG DEOXYHEMOGLOBIN 14.6 % (0.0-5.0); BG FRACTION INSPIRED OXYGEN 100; BG HCO3 ACT 35.5 mmol/L (21.0-28.0); BG METHEMOGLOBIN 0.3 % (0.5-1.5); BG OXYGEN SATURATION 85.2 % (94.0-98.0); BG OXYHEMOGLOBIN 83.9 % (94.0-98.0); BG PCO2 55.2 mmHg (32.0-45.0); BG PH 7.426 (7.350-7.450); BG PO2 45.8 mmHg (83.0-108.0); BG SAMPLE SITE RIGHT RADIAL; BG TOTAL HEMOGLOBIN 10.5 g/dL (12.0-16.0); BG VENT MODE VENT - AC
[2024-07-11 17:13] LABS: BG BASE EXCESS 10.5 mmol/L (-2.0-3.0); BG CARBOXYHEMOGLOBIN 1.7 % (0.5-1.5); BG DEOXYHEMOGLOBIN 8.6 % (0.0-5.0); BG FRACTION INSPIRED OXYGEN 100; BG HCO3 ACT 37.1 mmol/L (21.0-28.0); BG METHEMOGLOBIN 0.2 % (0.5-1.5); BG OXYGEN SATURATION 91.2 % (94.0-98.0); BG OXYHEMOGLOBIN 89.5 % (94.0-98.0); BG PCO2 60.4 mmHg (32.0-45.0); BG PH 7.406 (7.350-7.450); BG SAMPLE SITE RIGHT RADIAL; BG VENT MODE VENT - P/C
[2024-07-11] MEDS: PIPERACILLIN/TAZO 3.375G/50ML 50 ML IV SCH (17:23)
[2024-07-11] MEDS: METHYLPREDNISOLONE SOD SUCC 40MG/ML (ACT-O-VIAL) IV SCH (17:24)
[2024-07-11 22:30] LABS: BG BASE EXCESS 8.4 mmol/L (-2.0-3.0); BG CARBOXYHEMOGLOBIN 1.1 % (0.5-1.5); BG DEOXYHEMOGLOBIN 1.7 % (0.0-5.0); BG FRACTION INSPIRED OXYGEN 100; BG HCO3 ACT 32.3 mmol/L (21.0-28.0); BG METHEMOGLOBIN 0.2 % (0.5-1.5); BG OXYGEN SATURATION 98.3 % (94.0-98.0); BG PCO2 42.3 mmHg (32.0-45.0); BG PH 7.501 (7.350-7.450); BG PO2 97.1 mmHg (83.0-108.0); BG SAMPLE SITE RIGHT RADIAL; BG TOTAL HEMOGLOBIN 11.1 g/dL (12.0-16.0); BG TOTAL RESPIRATORY RATE 19 b/min; BG VENT MODE COOL AEROSOL
[2024-07-12] VITALS (107 sets, daily range): BP systolic 110–169; BP diastolic 54–153; PULSE 92–115; RESP 13–30; TEMP 36.9–37.9; O2SAT 89–100
[2024-07-12 05:56] LABS: HEMATOCRIT. 28.6 % (36.0-48.0); HEMOGLOBIN. 9.2 g/dL (12.0-16.0); MEAN CORPUSCULAR HEMOGLOBIN 28.3 pg (28.0-32.0); MEAN CORPUSCULAR HGB CONC 32.2 g/dL (31.0-37.0); MEAN CORPUSCULAR VOLUME 87.8 fL (81.0-99.0); PLATELET 180 x1000/uL (130-400); RED BLOOD CELL COUNT 3.26 mill/uL (4.2-5.4); RED CELL DISTRIBUTION WIDTH 17.7 % (11.6-14.6); WHITE BLOOD COUNT 15.1 x1000/uL (4.5-11.0)
[2024-07-12 06:17] LABS: POTASSIUM 3.5 mEq/L (3.5-5.1)
[2024-07-12 06:23] LABS: CREATININE 1.3 mg/dL (0.6-1.0)
[2024-07-12 07:59] LABS: DIFFERENTIAL COMMENT 1
[2024-07-12 08:54] LABS: BG BASE EXCESS 10.2 mmol/L (-2.0-3.0); BG CARBOXYHEMOGLOBIN 0.2 % (0.5-1.5); BG DEOXYHEMOGLOBIN 0.9 % (0.0-5.0); BG FRACTION INSPIRED OXYGEN 100; BG HCO3 ACT 31.6 mmol/L (21.0-28.0); BG METHEMOGLOBIN 0.3 % (0.5-1.5); BG OXYGEN SATURATION 99.1 % (94.0-98.0); BG OXYHEMOGLOBIN 98.6 % (94.0-98.0); BG PCO2 30.3 mmHg (32.0-45.0); BG PH 7.636 (7.350-7.450); BG PO2 120.8 mmHg (83.0-108.0); BG SAMPLE SITE LEFT RADIAL; BG TOTAL HEMOGLOBIN 9.5 g/dL (12.0-16.0); BG TOTAL RESPIRATORY RATE 18 b/min; BG VENT MODE VENT - P/C
[2024-07-12] MEDS ORDERED: MIDAZOLAM HCL 100 MG in SODIUM CHLORIDE 0.9% 80 ML IV PRN (09:00)
[2024-07-12] MEDS: ENOXAPARIN 40MG/0.4ML SYR SUBCUT SCH (09:08)
[2024-07-12] MEDS: ACETAZOLAMIDE SODIUM 500MG/VIAL IV SCH (10:35)
[2024-07-12] MEDS: MIDAZOLAM 100MG/100ML PREMIX IV PRN (10:35)
[2024-07-12] MEDS: POTASSIUM CHLORIDE 20MEQ/PACKET NG SCH (10:35)
[2024-07-12 11:14] LABS: ANISOCYTOSIS 1+; PLATELET ESTIMATE NORMAL; SMUDGE CELLS 1+
[2024-07-12 12:28] LABS: BG BASE EXCESS 13.4 mmol/L (-2.0-3.0); BG CARBOXYHEMOGLOBIN 0.3 % (0.5-1.5); BG DEOXYHEMOGLOBIN 5.7 % (0.0-5.0); BG FRACTION INSPIRED OXYGEN 70; BG HCO3 ACT 38.4 mmol/L (21.0-28.0); BG METHEMOGLOBIN 0.3 % (0.5-1.5); BG OXYGEN SATURATION 94.3 % (94.0-98.0); BG OXYHEMOGLOBIN 93.7 % (94.0-98.0); BG PCO2 51.8 mmHg (32.0-45.0); BG PH 7.488 (7.350-7.450); BG SAMPLE SITE LEFT RADIAL; BG TOTAL HEMOGLOBIN 9.8 g/dL (12.0-16.0); BG VENT MODE VENT - P/C
[2024-07-12] MEDS: HYDRALAZINE HCL 50MG TABLET PO SCH (12:50)
[2024-07-12] MEDS: NITROGLYCERIN OINT 1GM/INCH UDPKT TD SCH (12:51)
[2024-07-12] MEDS: PIPERACILLIN/TAZO 3.375G/50ML 50 ML IV SCH (13:02)
[2024-07-13] VITALS (100 sets, daily range): BP systolic 100–149; BP diastolic 43–119; PULSE 79–110; RESP 15–28; TEMP 37.3–37.9; O2SAT 92–100
[2024-07-13 05:46] LABS: HEMATOCRIT. 27.2 % (36.0-48.0); HEMOGLOBIN. 8.4 g/dL (12.0-16.0); MEAN CORPUSCULAR HEMOGLOBIN 26.7 pg (28.0-32.0); MEAN CORPUSCULAR VOLUME 85.9 fL (81.0-99.0); MEAN PLATELET VOLUME 9.8 fl (7.4-10.4); PLATELET 194 x1000/uL (130-400); RED BLOOD CELL COUNT 3.17 mill/uL (4.2-5.4); RED CELL DISTRIBUTION WIDTH 17.2 % (11.6-14.6); WHITE BLOOD COUNT 12.1 x1000/uL (4.5-11.0)
[2024-07-13 06:10] LABS: DIFFERENTIAL COMMENT 1
[2024-07-13 06:21] LABS: CALCIUM 8.9 mg/dL (8.7-10.4)
[2024-07-13 06:27] LABS: CREATININE 1.5 mg/dL (0.6-1.0)
[2024-07-13] MEDS ORDERED: DEXTROSE 50% WATER 50ML SYRINGE IV PRN (08:30)
[2024-07-13] MEDS: PANTOPRAZOLE SODIUM 40 MG/VIAL IV SCH (08:31)
[2024-07-13] MEDS: ACETAMINOPHEN 650MG/20.3ML UDC PO PRN (08:31)
[2024-07-13] MEDS: POTASSIUM CHLORIDE 20MEQ TABLET SR PO SCH (08:32)
[2024-07-13 09:01] LABS: ANISOCYTOSIS 1+; PLATELET ESTIMATE NORMAL
[2024-07-13 09:10] LABS: BG BASE EXCESS 8.9 mmol/L (-2.0-3.0); BG CARBOXYHEMOGLOBIN 2.5 % (0.5-1.5); BG DEOXYHEMOGLOBIN 12.9 % (0.0-5.0); BG FRACTION INSPIRED OXYGEN 40; BG METHEMOGLOBIN 0.2 % (0.5-1.5); BG OXYGEN SATURATION 86.7 % (94.0-98.0); BG OXYHEMOGLOBIN 84.4 % (94.0-98.0); BG PCO2 43.8 mmHg (32.0-45.0); BG PH 7.495 (7.350-7.450); BG PO2 48.1 mmHg (83.0-108.0); BG SAMPLE SITE RIGHT RADIAL; BG TOTAL HEMOGLOBIN 8.4 g/dL (12.0-16.0); BG VENT MODE VENT - AC/PC
[2024-07-13] MEDS: BLOOD SUGAR DIAGNOSTIC STRIP TEST SCH ×2 (11:35→11:46)
[2024-07-13] MEDS: INSULIN LISPRO 100 UNITS/ML SUBCUT SCH (11:50)
[2024-07-13] MEDS ORDERED: INSULIN LISPRO 100 UNITS/ML SUBCUT SCH (12:00)
[2024-07-13] MEDS: ACETAZOLAMIDE SODIUM 500MG/VIAL IV SCH (15:30)
[2024-07-14] VITALS (135 sets, daily range): BP systolic 89–189; BP diastolic 53–127; PULSE 58–117; RESP 9–29; TEMP 36.9–37.4; O2SAT 92–100
[2024-07-14 06:32] LABS: HEMATOCRIT. 27.7 % (36.0-48.0); HEMOGLOBIN. 8.2 g/dL (12.0-16.0); MEAN CORPUSCULAR HEMOGLOBIN 26.1 pg (28.0-32.0); MEAN CORPUSCULAR HGB CONC 29.5 g/dL (31.0-37.0); MEAN CORPUSCULAR VOLUME 88.5 fL (81.0-99.0); MEAN PLATELET VOLUME 10.6 fl (7.4-10.4); PLATELET 214 x1000/uL (130-400); RED BLOOD CELL COUNT 3.13 mill/uL (4.2-5.4); RED CELL DISTRIBUTION WIDTH 17.7 % (11.6-14.6); WHITE BLOOD COUNT 12.2 x1000/uL (4.5-11.0)
[2024-07-14 06:34] LABS: DIFFERENTIAL COMMENT 1
[2024-07-14] MEDS ORDERED: ETOMIDATE 2MG/ML 10ML VIAL IV ONE (06:45)
[2024-07-14] MEDS ORDERED: ROCURONIUM BROMIDE 10MG/ML VIAL 5ML IV ONE (06:45)
[2024-07-14] MEDS ORDERED: PROPOFOL 10MG/ML 100ML 100 ML IV PRN ×2 (07:00→07:15)
[2024-07-14 07:11] LABS: POTASSIUM 3.2 mEq/L (3.5-5.1)
[2024-07-14 07:13] LABS: CALCIUM 8.8 mg/dL (8.7-10.4)
[2024-07-14 07:17] LABS: CREATININE 1.6 mg/dL (0.6-1.0)
[2024-07-14 07:51] LABS: NUCLEATED RED BLOOD CELLS 4 /100 WBC
[2024-07-14 07:53] LABS: ANISOCYTOSIS 1+; PLATELET ESTIMATE NORMAL
[2024-07-14 07:54] LABS: HYPOCHROMASIA 1+
[2024-07-14] MEDS ORDERED: ETOMIDATE 2MG/ML 10ML VIAL IV SCH (08:00)
[2024-07-14] MEDS ORDERED: ROCURONIUM BROMIDE 10MG/ML VIAL 5ML IV SCH (08:00)
[2024-07-14] MEDS: IPRATROPIUM/ALBUTEROL 0.5-3(2.5)MG/3ML NEB HHN SCH (08:53)
[2024-07-14] MEDS: POTASSIUM CHLORIDE 20MEQ/PACKET PO NR (09:26)
[2024-07-14 09:42] LABS: BG BASE EXCESS 11.6 mmol/L (-2.0-3.0); BG CARBOXYHEMOGLOBIN 1.2 % (0.5-1.5); BG DEOXYHEMOGLOBIN 8.7 % (0.0-5.0); BG FRACTION INSPIRED OXYGEN 60; BG HCO3 ACT 37.9 mmol/L (21.0-28.0); BG METHEMOGLOBIN 0.3 % (0.5-1.5); BG OXYGEN SATURATION 91.2 % (94.0-98.0); BG OXYHEMOGLOBIN 89.8 % (94.0-98.0); BG PCO2 60.5 mmHg (32.0-45.0); BG PH 7.415 (7.350-7.450); BG PO2 64.6 mmHg (83.0-108.0); BG SAMPLE SITE LEFT RADIAL; BG TOTAL HEMOGLOBIN 9.9 g/dL (12.0-16.0); BG VENT MODE VENT - P/C
[2024-07-15] VITALS (73 sets, daily range): BP systolic 109–157; BP diastolic 52–93; PULSE 73–101; RESP 18–34; TEMP 36.5–37.6; O2SAT 10–100
[2024-07-15 05:39] LABS: HEMATOCRIT. 27.7 % (36.0-48.0); HEMOGLOBIN. 8.3 g/dL (12.0-16.0); MEAN CORPUSCULAR HEMOGLOBIN 26.5 pg (28.0-32.0); MEAN CORPUSCULAR HGB CONC 29.9 g/dL (31.0-37.0); MEAN CORPUSCULAR VOLUME 88.7 fL (81.0-99.0); MEAN PLATELET VOLUME 10.1 fl (7.4-10.4); PLATELET 205 x1000/uL (130-400); RED BLOOD CELL COUNT 3.12 mill/uL (4.2-5.4); RED CELL DISTRIBUTION WIDTH 17.6 % (11.6-14.6); WHITE BLOOD COUNT 12.7 x1000/uL (4.5-11.0)
[2024-07-15 05:54] LABS: POTASSIUM 3.1 mEq/L (3.5-5.1)
[2024-07-15 05:55] LABS: CALCIUM 8.9 mg/dL (8.7-10.4)
[2024-07-15 06:00] LABS: CREATININE 1.4 mg/dL (0.6-1.0)
[2024-07-15 06:03] LABS: DIFFERENTIAL COMMENT 1
[2024-07-15] MEDS: POTASSIUM CHLORIDE 20MEQ/PACKET PO NR (07:01)
[2024-07-15 08:41] LABS: ANISOCYTOSIS 1+; NUCLEATED RED BLOOD CELLS 2 /100 WBC; PLATELET ESTIMATE NORMAL
[2024-07-15 08:42] LABS: HYPOCHROMASIA 1+; TARGET CELLS 1+
[2024-07-15 09:46] LABS: BG BASE EXCESS 4.7 mmol/L (-2.0-3.0); BG CARBOXYHEMOGLOBIN 1.2 % (0.5-1.5); BG DEOXYHEMOGLOBIN 9.5 % (0.0-5.0); BG FRACTION INSPIRED OXYGEN 60; BG HCO3 ACT 30.9 mmol/L (21.0-28.0); BG METHEMOGLOBIN 0.1 % (0.5-1.5); BG OXYGEN SATURATION 90.4 % (94.0-98.0); BG OXYHEMOGLOBIN 89.2 % (94.0-98.0); BG PCO2 54.6 mmHg (32.0-45.0); BG PO2 62.8 mmHg (83.0-108.0); BG SAMPLE SITE LEFT RADIAL; BG TOTAL HEMOGLOBIN 9.4 g/dL (12.0-16.0); BG VENT MODE VENT - P/C
[2024-07-16] VITALS (56 sets, daily range): BP systolic 128–167; BP diastolic 68–92; PULSE 61–122; RESP 11–39; TEMP 36.8–37.4; O2SAT 89–100
[2024-07-16 07:05] LABS: POTASSIUM 3.5 mEq/L (3.5-5.1)
[2024-07-16 07:06] LABS: CALCIUM 9.4 mg/dL (8.7-10.4)
[2024-07-16 07:09] LABS: HEMATOCRIT. 31.2 % (36.0-48.0); HEMOGLOBIN. 9.4 g/dL (12.0-16.0); MEAN CORPUSCULAR HEMOGLOBIN 26.7 pg (28.0-32.0); MEAN CORPUSCULAR VOLUME 88.8 fL (81.0-99.0); MEAN PLATELET VOLUME 10.9 fl (7.4-10.4); PLATELET 261 x1000/uL (130-400); RED BLOOD CELL COUNT 3.51 mill/uL (4.2-5.4); RED CELL DISTRIBUTION WIDTH 17.7 % (11.6-14.6)
[2024-07-16 07:11] LABS: CREATININE 1.6 mg/dL (0.6-1.0)
[2024-07-16 07:22] LABS: DIFFERENTIAL COMMENT 1
[2024-07-16 08:56] LABS: ANISOCYTOSIS 2+; NUCLEATED RED BLOOD CELLS 6 /100 WBC; PLATELET ESTIMATE NORMAL
[2024-07-16] MEDS: FUROSEMIDE 40MG/4ML VIAL IVP SCH (09:36)
[2024-07-16 10:01] LABS: BG BASE EXCESS 7.2 mmol/L (-2.0-3.0); BG CARBOXYHEMOGLOBIN 1.2 % (0.5-1.5); BG DEOXYHEMOGLOBIN 6.6 % (0.0-5.0); BG FRACTION INSPIRED OXYGEN 60; BG HCO3 ACT 33.6 mmol/L (21.0-28.0); BG METHEMOGLOBIN 0.3 % (0.5-1.5); BG OXYGEN SATURATION 93.3 % (94.0-98.0); BG OXYHEMOGLOBIN 91.9 % (94.0-98.0); BG PCO2 58.1 mmHg (32.0-45.0); BG PO2 70.2 mmHg (83.0-108.0); BG SAMPLE SITE LEFT FEMORAL; BG TOTAL HEMOGLOBIN 9.9 g/dL (12.0-16.0); BG TOTAL RESPIRATORY RATE 22 b/min; BG VENT MODE VENT - P/C
[2024-07-17] VITALS (60 sets, daily range): BP systolic 108–180; BP diastolic 55–93; PULSE 82–118; RESP 17–43; TEMP 36.9–38.1; O2SAT 84–100
[2024-07-17 05:39] LABS: HEMATOCRIT. 30.8 % (36.0-48.0); MEAN CORPUSCULAR HEMOGLOBIN 26.4 pg (28.0-32.0); MEAN CORPUSCULAR HGB CONC 29.4 g/dL (31.0-37.0); MEAN CORPUSCULAR VOLUME 90.1 fL (81.0-99.0); MEAN PLATELET VOLUME 11.3 fl (7.4-10.4); PLATELET 277 x1000/uL (130-400); RED BLOOD CELL COUNT 3.42 mill/uL (4.2-5.4); RED CELL DISTRIBUTION WIDTH 17.9 % (11.6-14.6); WHITE BLOOD COUNT 18.2 x1000/uL (4.5-11.0)
[2024-07-17 05:45] LABS: POTASSIUM 3.4 mEq/L (3.5-5.1)
[2024-07-17 05:46] LABS: CALCIUM 9.4 mg/dL (8.7-10.4)
[2024-07-17 05:51] LABS: CREATININE 1.7 mg/dL (0.6-1.0)
[2024-07-17 06:47] LABS: DIFFERENTIAL COMMENT 1
[2024-07-17 08:47] LABS: NUCLEATED RED BLOOD CELLS 3 /100 WBC
[2024-07-17 08:48] LABS: ANISOCYTOSIS 2+
[2024-07-17 08:54] LABS: PLATELET ESTIMATE NORMAL
[2024-07-17 09:36] LABS: BG BASE EXCESS 6.3 mmol/L (-2.0-3.0); BG DEOXYHEMOGLOBIN 20.5 % (0.0-5.0); BG FRACTION INSPIRED OXYGEN 50; BG HCO3 ACT 32.8 mmol/L (21.0-28.0); BG METHEMOGLOBIN 0.1 % (0.5-1.5); BG OXYGEN SATURATION 79.3 % (94.0-98.0); BG OXYHEMOGLOBIN 78.4 % (94.0-98.0); BG PCO2 58.6 mmHg (32.0-45.0); BG PH 7.366 (7.350-7.450); BG PO2 45.5 mmHg (83.0-108.0); BG SAMPLE SITE RIGHT RADIAL; BG TOTAL HEMOGLOBIN 9.5 g/dL (12.0-16.0); BG VENT MODE VENT - P/C
[2024-07-17] MEDS: KCL 20MEQ/100ML PREMIX 100 ML IV SCH (09:52)
[2024-07-17] MEDS ORDERED: FENTANYL 2500MCG/250ML PMX 250 ML IV PRN (11:30)
[2024-07-17] MEDS: FENTANYL CITRATE 2,500 MCG in SODIUM CHLORIDE 0.9% 200 ML IV PRN (12:09)
[2024-07-17] MEDS: MIDAZOLAM 100MG/100ML PMX 100 ML IV PRN (17:51)
[2024-07-17 18:59] LABS: BG BASE EXCESS 5.2 mmol/L (-2.0-3.0); BG CARBOXYHEMOGLOBIN 1.1 % (0.5-1.5); BG DEOXYHEMOGLOBIN 13.2 % (0.0-5.0); BG FRACTION INSPIRED OXYGEN 60; BG HCO3 ACT 32.8 mmol/L (21.0-28.0); BG METHEMOGLOBIN 0.3 % (0.5-1.5); BG OXYGEN SATURATION 86.6 % (94.0-98.0); BG OXYHEMOGLOBIN 85.4 % (94.0-98.0); BG PCO2 66.3 mmHg (32.0-45.0); BG PH 7.312 (7.350-7.450); BG SAMPLE SITE LEFT RADIAL; BG TOTAL HEMOGLOBIN 9.9 g/dL (12.0-16.0); BG TOTAL RESPIRATORY RATE 33 b/min; BG VENT MODE VENT - P/C
[2024-07-17 22:51] LABS: BG BASE EXCESS 6.6 mmol/L (-2.0-3.0); BG CARBOXYHEMOGLOBIN 0.9 % (0.5-1.5); BG DEOXYHEMOGLOBIN 17.2 % (0.0-5.0); BG FRACTION INSPIRED OXYGEN 60; BG HCO3 ACT 33.7 mmol/L (21.0-28.0); BG METHEMOGLOBIN 0.3 % (0.5-1.5); BG OXYGEN SATURATION 82.6 % (94.0-98.0); BG OXYHEMOGLOBIN 81.6 % (94.0-98.0); BG PCO2 64.1 mmHg (32.0-45.0); BG PH 7.339 (7.350-7.450); BG PO2 51.2 mmHg (83.0-108.0); BG SAMPLE SITE RIGHT RADIAL; BG TOTAL HEMOGLOBIN 9.8 g/dL (12.0-16.0); BG TOTAL RESPIRATORY RATE 32 b/min; BG VENT MODE VENT - P/C
[2024-07-18] VITALS (51 sets, daily range): BP systolic 116–186; BP diastolic 49–88; PULSE 62–99; RESP 15–34; TEMP 36.8–37.3; O2SAT 82–100
[2024-07-18 06:18] LABS: HEMATOCRIT. 30.1 % (36.0-48.0); HEMOGLOBIN. 8.9 g/dL (12.0-16.0); MEAN CORPUSCULAR HEMOGLOBIN 27.1 pg (28.0-32.0); MEAN CORPUSCULAR HGB CONC 29.5 g/dL (31.0-37.0); MEAN CORPUSCULAR VOLUME 91.7 fL (81.0-99.0); MEAN PLATELET VOLUME 11.3 fl (7.4-10.4); PLATELET 240 x1000/uL (130-400); RED BLOOD CELL COUNT 3.29 mill/uL (4.2-5.4); RED CELL DISTRIBUTION WIDTH 17.9 % (11.6-14.6); WHITE BLOOD COUNT 19.5 x1000/uL (4.5-11.0)
[2024-07-18 06:26] LABS: CALCIUM 9.1 mg/dL (8.7-10.4); POTASSIUM 4.1 mEq/L (3.5-5.1)
[2024-07-18 06:32] LABS: CREATININE 1.7 mg/dL (0.6-1.0)
[2024-07-18 07:00] LABS: DIFFERENTIAL COMMENT 1
[2024-07-18 09:33] LABS: BG BASE EXCESS 7.8 mmol/L (-2.0-3.0); BG CARBOXYHEMOGLOBIN 0.6 % (0.5-1.5); BG DEOXYHEMOGLOBIN 3.4 % (0.0-5.0); BG FRACTION INSPIRED OXYGEN 80; BG HCO3 ACT 33.8 mmol/L (21.0-28.0); BG OXYGEN SATURATION 96.6 % (94.0-98.0); BG PCO2 55.5 mmHg (32.0-45.0); BG PH 7.402 (7.350-7.450); BG PO2 88.9 mmHg (83.0-108.0); BG SAMPLE SITE LEFT RADIAL; BG TOTAL HEMOGLOBIN 9.2 g/dL (12.0-16.0); BG VENT MODE VENT - P/C
[2024-07-18 09:42] LABS: NUCLEATED RED BLOOD CELLS 1 /100 WBC
[2024-07-18 09:43] LABS: ANISOCYTOSIS 1+; HYPOCHROMASIA 1+; PLATELET ESTIMATE NORMAL
[2024-07-19] VITALS (93 sets, daily range): BP systolic 129–182; BP diastolic 49–77; PULSE 55–95; RESP 16–36; TEMP 36.8–37.3; O2SAT 91–100
[2024-07-19 05:10] LABS: HEMATOCRIT. 26.8 % (36.0-48.0); MEAN CORPUSCULAR HEMOGLOBIN 26.4 pg (28.0-32.0); MEAN CORPUSCULAR HGB CONC 29.9 g/dL (31.0-37.0); MEAN CORPUSCULAR VOLUME 88.2 fL (81.0-99.0); MEAN PLATELET VOLUME 10.9 fl (7.4-10.4); PLATELET 263 x1000/uL (130-400); RED BLOOD CELL COUNT 3.04 mill/uL (4.2-5.4); RED CELL DISTRIBUTION WIDTH 17.8 % (11.6-14.6)
[2024-07-19 05:26] LABS: POTASSIUM 3.4 mEq/L (3.5-5.1)
[2024-07-19 05:27] LABS: CALCIUM 9.1 mg/dL (8.7-10.4)
[2024-07-19 05:32] LABS: CREATININE 1.5 mg/dL (0.6-1.0)
[2024-07-19 05:58] LABS: DIFFERENTIAL COMMENT 1
[2024-07-19] MEDS: CLONIDINE 0.1MG TABLET PO PRN (07:41)
[2024-07-19] MEDS: HYDRALAZINE HCL 100MG TABLET PO SCH ×2 (08:53→13:13)
[2024-07-19 10:00] LABS: BG BASE EXCESS 7.9 mmol/L (-2.0-3.0); BG CARBOXYHEMOGLOBIN 1.4 % (0.5-1.5); BG DEOXYHEMOGLOBIN 4.8 % (0.0-5.0); BG FRACTION INSPIRED OXYGEN 55; BG HCO3 ACT 30.5 mmol/L (21.0-28.0); BG METHEMOGLOBIN 0.2 % (0.5-1.5); BG OXYGEN SATURATION 95.1 % (94.0-98.0); BG OXYHEMOGLOBIN 93.6 % (94.0-98.0); BG PCO2 33.7 mmHg (32.0-45.0); BG PH 7.574 (7.350-7.450); BG SAMPLE SITE LEFT RADIAL; BG VENT MODE VENT - P/C
[2024-07-19] MEDS: AMLODIPINE 10MG TABLET PO SCH (10:39)
[2024-07-19] MEDS: POTASSIUM CHLORIDE 20MEQ/PACKET NG SCH (10:39)
[2024-07-19 11:05] LABS: NUCLEATED RED BLOOD CELLS 2 /100 WBC
[2024-07-19 11:07] LABS: ANISOCYTOSIS 1+; PLATELET ESTIMATE NORMAL
[2024-07-19 11:09] LABS: HYPOCHROMASIA 1+
[2024-07-19] MEDS: IPRATROPIUM/ALBUTEROL 0.5-3(2.5)MG/3ML NEB HHN PRN (13:27)
[2024-07-19] MEDS: IPRATROPIUM/ALBUTEROL 0.5-3(2.5)MG/3ML NEB HHN SCH (14:35)
[2024-07-19] MEDS ORDERED: INFLUENZA VACCINE 05/PF 0.5 ML SYRINGE IM ONE (15:15)
[2024-07-19] MEDS: PNEUMOCOCCAL 20-VAL CONJ-DIP CRM 0.5ML IM ONE (18:08)
[2024-07-20] VITALS (87 sets, daily range): BP systolic 125–173; BP diastolic 47–111; PULSE 75–116; RESP 18–38; TEMP 36.3–37; O2SAT 92–100
[2024-07-20 05:28] LABS: HEMATOCRIT. 27.7 % (36.0-48.0); HEMOGLOBIN. 8.3 g/dL (12.0-16.0); MEAN CORPUSCULAR HEMOGLOBIN 26.7 pg (28.0-32.0); MEAN CORPUSCULAR VOLUME 88.9 fL (81.0-99.0); MEAN PLATELET VOLUME 10.7 fl (7.4-10.4); PLATELET 293 x1000/uL (130-400); RED BLOOD CELL COUNT 3.12 mill/uL (4.2-5.4); RED CELL DISTRIBUTION WIDTH 18.6 % (11.6-14.6); WHITE BLOOD COUNT 14.6 x1000/uL (4.5-11.0)
[2024-07-20 05:45] LABS: DIFFERENTIAL COMMENT 1
[2024-07-20 06:03] LABS: CALCIUM 9.2 mg/dL (8.7-10.4); POTASSIUM 3.4 mEq/L (3.5-5.1)
[2024-07-20 06:09] LABS: CREATININE 1.3 mg/dL (0.6-1.0)
[2024-07-20] MEDS: METHYLPREDNISOLONE SOD SUCC 125MG/2ML (ACT-O-VIAL) IV SCH (06:33)
[2024-07-20 08:30] LABS: ANISOCYTOSIS 1+; HYPOCHROMASIA 1+; NUCLEATED RED BLOOD CELLS 1 /100 WBC; PLATELET ESTIMATE NORMAL
[2024-07-20 08:31] LABS: BG BASE EXCESS 5.7 mmol/L (-2.0-3.0); BG CARBOXYHEMOGLOBIN 1.5 % (0.5-1.5); BG DEOXYHEMOGLOBIN 11.9 % (0.0-5.0); BG FRACTION INSPIRED OXYGEN 40; BG HCO3 ACT 30.7 mmol/L (21.0-28.0); BG METHEMOGLOBIN 0.1 % (0.5-1.5); BG OXYGEN SATURATION 87.9 % (94.0-98.0); BG OXYHEMOGLOBIN 86.5 % (94.0-98.0); BG PCO2 47.4 mmHg (32.0-45.0); BG PH 7.429 (7.350-7.450); BG PO2 56.6 mmHg (83.0-108.0); BG SAMPLE SITE RIGHT RADIAL; BG TOTAL HEMOGLOBIN 8.9 g/dL (12.0-16.0); BG VENT MODE VENT - SIMV
[2024-07-20 08:31] LABS: GIANT PLATELETS FEW
[2024-07-20] MEDS: HYDRALAZINE 20MG/ML VIAL IV SCH (12:17)
[2024-07-20] MEDS: POTASSIUM CHLORIDE 20MEQ TABLET SR PO SCH (12:17)
[2024-07-20] MEDS: CLONIDINE 0.1MG TABLET PO SCH (13:16)
[2024-07-20 15:27] LABS: BG BASE EXCESS 5.2 mmol/L (-2.0-3.0); BG CARBOXYHEMOGLOBIN 1.6 % (0.5-1.5); BG DEOXYHEMOGLOBIN 14.6 % (0.0-5.0); BG FRACTION INSPIRED OXYGEN 40; BG HCO3 ACT 30.2 mmol/L (21.0-28.0); BG METHEMOGLOBIN 0.2 % (0.5-1.5); BG OXYGEN SATURATION 85.1 % (94.0-98.0); BG OXYHEMOGLOBIN 83.6 % (94.0-98.0); BG PCO2 47.1 mmHg (32.0-45.0); BG PH 7.425 (7.350-7.450); BG PO2 51.7 mmHg (83.0-108.0); BG SAMPLE SITE RIGHT RADIAL; BG TOTAL HEMOGLOBIN 9.3 g/dL (12.0-16.0); BG VENT MODE VENT - CPAP
[2024-07-20 23:09] LABS: BG BASE EXCESS 5.8 mmol/L (-2.0-3.0); BG CARBOXYHEMOGLOBIN 1.6 % (0.5-1.5); BG DEOXYHEMOGLOBIN 15.7 % (0.0-5.0); BG FRACTION INSPIRED OXYGEN 60; BG HCO3 ACT 31.8 mmol/L (21.0-28.0); BG METHEMOGLOBIN 0.3 % (0.5-1.5); BG OXYHEMOGLOBIN 82.4 % (94.0-98.0); BG PH 7.388 (7.350-7.450); BG PO2 51.9 mmHg (83.0-108.0); BG SAMPLE SITE RIGHT BRACHIAL; BG VENT MODE NASAL CANNULA
[2024-07-21] VITALS (62 sets, daily range): BP systolic 131–175; BP diastolic 46–136; PULSE 67–106; RESP 16–39; TEMP 36.4–36.7; O2SAT 86–100
[2024-07-21 05:12] LABS: HEMATOCRIT. 28.8 % (36.0-48.0); HEMOGLOBIN. 8.6 g/dL (12.0-16.0); MEAN CORPUSCULAR HEMOGLOBIN 26.9 pg (28.0-32.0); MEAN CORPUSCULAR HGB CONC 29.9 g/dL (31.0-37.0); MEAN CORPUSCULAR VOLUME 89.8 fL (81.0-99.0); MEAN PLATELET VOLUME 10.2 fl (7.4-10.4); PLATELET 285 x1000/uL (130-400); RED CELL DISTRIBUTION WIDTH 19.4 % (11.6-14.6); WHITE BLOOD COUNT 14.8 x1000/uL (4.5-11.0)
[2024-07-21 05:19] LABS: POTASSIUM 3.7 mEq/L (3.5-5.1)
[2024-07-21 05:20] LABS: CALCIUM 9.2 mg/dL (8.7-10.4)
[2024-07-21 05:25] LABS: CREATININE 1.2 mg/dL (0.6-1.0)
[2024-07-21 05:28] LABS: DIFFERENTIAL COMMENT 1
[2024-07-21 08:38] LABS: ANISOCYTOSIS 2+; HYPOCHROMASIA 1+; NUCLEATED RED BLOOD CELLS 2 /100 WBC; PLATELET ESTIMATE NORMAL
[2024-07-21] MEDS: LOSARTAN 50 MG TABLET PO SCH (08:59)
[2024-07-21 09:05] LABS: BG CARBOXYHEMOGLOBIN 1.7 % (0.5-1.5); BG DEOXYHEMOGLOBIN 10.3 % (0.0-5.0); BG FRACTION INSPIRED OXYGEN 40; BG HCO3 ACT 32.1 mmol/L (21.0-28.0); BG METHEMOGLOBIN 0.1 % (0.5-1.5); BG OXYGEN SATURATION 89.5 % (94.0-98.0); BG OXYHEMOGLOBIN 87.9 % (94.0-98.0); BG PCO2 49.4 mmHg (32.0-45.0); BG PH 7.431 (7.350-7.450); BG PO2 58.1 mmHg (83.0-108.0); BG SAMPLE SITE RIGHT RADIAL; BG TOTAL HEMOGLOBIN 9.1 g/dL (12.0-16.0); BG TOTAL RESPIRATORY RATE 21 b/min; BG VENT MODE MASK - BIPAP
[2024-07-21] MEDS ORDERED: METHYLPREDNISOLONE SOD SUCC 40MG/ML (ACT-O-VIAL) IV SCH (21:00)
[2024-07-21] MEDS: METHYLPREDNISOLONE SOD SUCC 125MG/2ML (ACT-O-VIAL) IV SCH (22:34)
[2024-07-22] VITALS (37 sets, daily range): BP systolic 99–193; BP diastolic 59–95; PULSE 70–104; RESP 13–28; TEMP 36.5–37.5; O2SAT 89–99
[2024-07-22 06:12] LABS: CHLORIDE 108 mEq/L (98-107); POTASSIUM 3.8 mEq/L (3.5-5.1); SODIUM 151 mEq/L (136-145)
[2024-07-22 06:13] LABS: CALCIUM 9.2 mg/dL (8.7-10.4); CARBON DIOXIDE 36 mEq/L (21-32)
[2024-07-22 06:18] LABS: CREATININE 1.1 mg/dL (0.6-1.0); GLUCOSE 180 mg/dL (70-105)
[2024-07-22 06:19] LABS: UREA NITROGEN BLOOD 57 mg/dL (9-23)
[2024-07-22 06:29] LABS: HEMATOCRIT. 27.6 % (36.0-48.0); HEMOGLOBIN. 8.4 g/dL (12.0-16.0); MEAN CORPUSCULAR HEMOGLOBIN 27.3 pg (28.0-32.0); MEAN CORPUSCULAR HGB CONC 30.4 g/dL (31.0-37.0); MEAN CORPUSCULAR VOLUME 89.9 fL (81.0-99.0); MEAN PLATELET VOLUME 10.6 fl (7.4-10.4); PLATELET 281 x1000/uL (130-400); RED BLOOD CELL COUNT 3.07 mill/uL (4.2-5.4); RED CELL DISTRIBUTION WIDTH 19.7 % (11.6-14.6); WHITE BLOOD COUNT 14.4 x1000/uL (4.5-11.0)
[2024-07-22 06:49] LABS: DIFFERENTIAL COMMENT 1
[2024-07-22] MEDS: FUROSEMIDE 40MG/4ML VIAL IVP SCH ×2 (08:25→14:43)
[2024-07-22 08:34] LABS: ANISOCYTOSIS 2+; HYPOCHROMASIA 1+; PLATELET ESTIMATE NORMAL; TARGET CELLS 1+
[2024-07-22 11:20] LABS: BG BASE EXCESS 7.4 mmol/L (-2.0-3.0); BG DEOXYHEMOGLOBIN 10.5 % (0.0-5.0); BG FRACTION INSPIRED OXYGEN 50; BG METHEMOGLOBIN 0.3 % (0.5-1.5); BG OXYGEN SATURATION 89.4 % (94.0-98.0); BG OXYHEMOGLOBIN 88.2 % (94.0-98.0); BG PCO2 39.5 mmHg (32.0-45.0); BG PH 7.512 (7.350-7.450); BG PO2 57.7 mmHg (83.0-108.0); BG SAMPLE SITE LEFT RADIAL; BG TOTAL HEMOGLOBIN 10.1 g/dL (12.0-16.0); BG VENT MODE HIGH FLOW
[2024-07-22] MEDS: NITROGLYCERIN OINT 1GM/INCH UDPKT TD SCH (11:58)
[2024-07-22] MEDS: SPIRONOLACTONE 25MG TABLET PO SCH (14:43)
[2024-07-22] MEDS: ACETAZOLAMIDE 250MG TABLET PO SCH (16:02)
[2024-07-22] MEDS: GUAIFENESIN 200MG/10ML SUGAR FREE UDC PO PRN (22:01)
[2024-07-23] VITALS (32 sets, daily range): BP systolic 136–162; BP diastolic 62–90; PULSE 70–106; RESP 15–31; TEMP 36.2–37.2; O2SAT 93–100
[2024-07-23 06:04] LABS: HEMATOCRIT. 27.8 % (36.0-48.0); HEMOGLOBIN. 8.3 g/dL (12.0-16.0); MEAN CORPUSCULAR HEMOGLOBIN 27.2 pg (28.0-32.0); MEAN CORPUSCULAR HGB CONC 30.1 g/dL (31.0-37.0); MEAN CORPUSCULAR VOLUME 90.5 fL (81.0-99.0); MEAN PLATELET VOLUME 10.3 fl (7.4-10.4); PLATELET 261 x1000/uL (130-400); RED BLOOD CELL COUNT 3.07 mill/uL (4.2-5.4); RED CELL DISTRIBUTION WIDTH 20.3 % (11.6-14.6); WHITE BLOOD COUNT 16.7 x1000/uL (4.5-11.0)
[2024-07-23 06:35] LABS: CARBON DIOXIDE 34 mEq/L (21-32); CHLORIDE 108 mEq/L (98-107); POTASSIUM 3.6 mEq/L (3.5-5.1); SODIUM 150 mEq/L (136-145)
[2024-07-23 06:36] LABS: CALCIUM 9.3 mg/dL (8.7-10.4)
[2024-07-23 06:40] LABS: CREATININE 1.1 mg/dL (0.6-1.0)
[2024-07-23 06:41] LABS: GLUCOSE 187 mg/dL (70-105); UREA NITROGEN BLOOD 50 mg/dL (9-23)
[2024-07-23 06:51] LABS: DIFFERENTIAL COMMENT 1
[2024-07-23 09:10] LABS: ANISOCYTOSIS 2+; PLATELET ESTIMATE NORMAL
[2024-07-23] MEDS: CLONIDINE 0.2MG TABLET PO SCH (17:12)
[2024-07-23] MEDS: ACETAZOLAMIDE 250MG TABLET PO SCH (19:45)
[2024-07-24] VITALS (18 sets, daily range): BP systolic 145–167; BP diastolic 73–104; PULSE 75–92; RESP 18–30; TEMP 36.3–37.3; O2SAT 90–99
[2024-07-24 06:50] LABS: CHLORIDE 106 mEq/L (98-107); POTASSIUM 3.5 mEq/L (3.5-5.1); SODIUM 146 mEq/L (136-145)
[2024-07-24 06:51] LABS: CALCIUM 9.9 mg/dL (8.7-10.4); CARBON DIOXIDE 30 mEq/L (21-32)
[2024-07-24 06:56] LABS: GLUCOSE 127 mg/dL (70-105); UREA NITROGEN BLOOD 43 mg/dL (9-23)
[2024-07-24 07:58] LABS: HEMATOCRIT. 29.9 % (36.0-48.0); HEMOGLOBIN. 9.1 g/dL (12.0-16.0); MEAN CORPUSCULAR HEMOGLOBIN 27.6 pg (28.0-32.0); MEAN CORPUSCULAR HGB CONC 30.3 g/dL (31.0-37.0); MEAN CORPUSCULAR VOLUME 91.2 fL (81.0-99.0); MEAN PLATELET VOLUME 10.7 fl (7.4-10.4); PLATELET 232 x1000/uL (130-400); RED BLOOD CELL COUNT 3.28 mill/uL (4.2-5.4); RED CELL DISTRIBUTION WIDTH 20.2 % (11.6-14.6); WHITE BLOOD COUNT 14.2 x1000/uL (4.5-11.0)
[2024-07-24 08:21] LABS: DIFFERENTIAL COMMENT 1
[2024-07-24] MEDS: HYDROCHLOROTHIAZIDE 25MG TABLET PO SCH (09:34)
[2024-07-24] MEDS: METHYLPREDNISOLONE SOD SUCC 40MG/ML (ACT-O-VIAL) IV SCH (09:34)
[2024-07-24 11:47] LABS: BG BASE EXCESS 2.6 mmol/L (-2.0-3.0); BG CARBOXYHEMOGLOBIN 1.8 % (0.5-1.5); BG DEOXYHEMOGLOBIN 20.7 % (0.0-5.0); BG FRACTION INSPIRED OXYGEN 35; BG HCO3 ACT 26.5 mmol/L (21.0-28.0); BG METHEMOGLOBIN 0.1 % (0.5-1.5); BG OXYGEN SATURATION 78.9 % (94.0-98.0); BG OXYHEMOGLOBIN 77.4 % (94.0-98.0); BG PCO2 38.1 mmHg (32.0-45.0); BG SAMPLE SITE RIGHT RADIAL; BG TOTAL HEMOGLOBIN 9.8 g/dL (12.0-16.0); BG VENT MODE HIGH FLOW
[2024-07-24 15:00] LABS: ANISOCYTOSIS 2+; PLATELET ESTIMATE NORMAL
[2024-07-25] VITALS (15 sets, daily range): BP systolic 134–164; BP diastolic 67–86; PULSE 66–88; RESP 11–37; TEMP 35.9–37.1; O2SAT 93–100
[2024-07-25] MEDS: PREDNISONE 20MG TABLET PO SCH (08:39)
[2024-07-25 09:09] LABS: INFLUENZA TYPE A Presumptive Negative (Pres. Neg.); INFLUENZA TYPE B Presumptive Negative (Pres. Neg.)
[2024-07-25 09:26] LABS: BASOPHILS % 0.1 % (0.0-2.0); EOSINOPHILS % 0.6 % (0.0-5.0); HEMATOCRIT. 28.4 % (36.0-48.0); HEMOGLOBIN. 8.8 g/dL (12.0-16.0); LYMPHOCYTES % 7.4 % (20.0-50.0); MEAN CORPUSCULAR HEMOGLOBIN 27.9 pg (28.0-32.0); MEAN CORPUSCULAR HGB CONC 30.9 g/dL (31.0-37.0); MEAN CORPUSCULAR VOLUME 90.2 fL (81.0-99.0); MEAN PLATELET VOLUME 10.5 fl (7.4-10.4); MONOCYTES % 6.5 % (2.0-8.0); NEUTROPHILS % 85.4 % (40.0-76.0); PLATELET 214 x1000/uL (130-400); RED BLOOD CELL COUNT 3.15 mill/uL (4.2-5.4); RED CELL DISTRIBUTION WIDTH 20.5 % (11.6-14.6); WHITE BLOOD COUNT 11.4 x1000/uL (4.5-11.0)
[2024-07-25 09:37] LABS: CARBON DIOXIDE 30 mEq/L (21-32); CHLORIDE 106 mEq/L (98-107); POTASSIUM 3.4 mEq/L (3.5-5.1); SODIUM 144 mEq/L (136-145)
[2024-07-25 09:38] LABS: CALCIUM 9.6 mg/dL (8.7-10.4)
[2024-07-25 09:43] LABS: CREATININE 1.1 mg/dL (0.6-1.0); GLUCOSE 124 mg/dL (70-105); UREA NITROGEN BLOOD 40 mg/dL (9-23)
[2024-07-25] MEDS: POTASSIUM CHLORIDE 20MEQ TABLET SR PO SCH (13:03)
[2024-07-25] MEDS ORDERED: DEXTROSE 50% WATER 50ML SYRINGE IV PRN (20:30)
[2024-07-25] MEDS: IPRATROPIUM/ALBUTEROL 0.5-3(2.5)MG/3ML NEB HHN SCH (20:53)
[2024-07-25] MEDS: BLOOD SUGAR DIAGNOSTIC STRIP TEST SCH (21:00)
[2024-07-25] MEDS: INSULIN LISPRO 100 UNITS/ML SUBCUT SCH (21:00)
[2024-07-25] MEDS: NITROGLYCERIN OINT 1GM/INCH UDPKT TD SCH (22:10)
[2024-07-26] VITALS (17 sets, daily range): BP systolic 115–162; BP diastolic 60–89; PULSE 69–86; RESP 18–35; TEMP 36.4–37.1; O2SAT 97–100
[2024-07-26 06:27] LABS: CALCIUM 9.6 mg/dL (8.7-10.4); POTASSIUM 3.4 mEq/L (3.5-5.1)
[2024-07-26 06:33] LABS: CREATININE 1.2 mg/dL (0.6-1.0)
[2024-07-26 07:43] LABS: HEMOGLOBIN. 8.3 g/dL (12.0-16.0); MEAN CORPUSCULAR HGB CONC 30.9 g/dL (31.0-37.0); MEAN CORPUSCULAR VOLUME 90.6 fL (81.0-99.0); MEAN PLATELET VOLUME 10.3 fl (7.4-10.4); PLATELET 196 x1000/uL (130-400); RED BLOOD CELL COUNT 2.98 mill/uL (4.2-5.4); RED CELL DISTRIBUTION WIDTH 20.8 % (11.6-14.6); WHITE BLOOD COUNT 9.8 x1000/uL (4.5-11.0)
[2024-07-26 08:04] LABS: DIFFERENTIAL COMMENT 1
[2024-07-26] MEDS: POTASSIUM CHLORIDE 20MEQ/PACKET PO NR (08:05)
[2024-07-26] MEDS: PREDNISONE 10MG TABLET PO SCH (08:17)
[2024-07-26] MEDS: AMLODIPINE 5MG TABLET PO SCH (08:21)
[2024-07-26 19:07] LABS: GIANT PLATELETS FEW; PLATELET ESTIMATE NORMAL
== END 2024-07-26 20:54 | DRG 870 ==
LOC: ER 13:30 → EDBEDREQTM 16:44 → EDBEDREQ 16:44 → 8WST 18:08 → 5EST 07-08 12:51 → MICUNO 07-08 17:13 → 5EST 07-23 10:18
PROVIDERS: ADMIT Internal Medicine; ATTEND Internal Medicine
PROC: 5A09357 Assistance with Respiratory Ventilation, Less than 24 Consecutive Hours, Continuous Positive Airway Pressure (ICD-10-PCS; 2024-07-08)
PROC: 5A0935A Assistance with Respiratory Ventilation, Less than 24 Consecutive Hours, High Flow/Velocity Cannula (ICD-10-PCS; 2024-07-08)
PROC: 05H633Z Insertion of Infusion Device into Left Subclavian Vein, Percutaneous Approach (ICD-10-PCS; 2024-07-08)
PROC: B547ZZA Ultrasonography of Left Subclavian Vein, Guidance (ICD-10-PCS; 2024-07-08)
PROC: 5A09457 Assistance with Respiratory Ventilation, 24-96 Consecutive Hours, Continuous Positive Airway Pressure (ICD-10-PCS; 2024-07-09)
PROC: 0BH17EZ Insertion of Endotracheal Airway into Trachea, Via Natural or Artificial Opening (ICD-10-PCS; 2024-07-11)
PROC: 5A1955Z Respiratory Ventilation, Greater than 96 Consecutive Hours (ICD-10-PCS; 2024-07-14)
PROC: 0BH17EZ Insertion of Endotracheal Airway into Trachea, Via Natural or Artificial Opening (ICD-10-PCS; 2024-07-14)
PROC: 5A0935A Assistance with Respiratory Ventilation, Less than 24 Consecutive Hours, High Flow/Velocity Cannula (ICD-10-PCS; 2024-07-20)
PROC: 5A09357 Assistance with Respiratory Ventilation, Less than 24 Consecutive Hours, Continuous Positive Airway Pressure (ICD-10-PCS; principal; 2024-07-21)
PROC: 5A0935A Assistance with Respiratory Ventilation, Less than 24 Consecutive Hours, High Flow/Velocity Cannula (ICD-10-PCS; 2024-07-21)
PROC: 5A0935A Assistance with Respiratory Ventilation, Less than 24 Consecutive Hours, High Flow/Velocity Cannula (ICD-10-PCS; 2024-07-22)
PROC: 5A09457 Assistance with Respiratory Ventilation, 24-96 Consecutive Hours, Continuous Positive Airway Pressure (ICD-10-PCS; 2024-07-22)
PROC: 5A09457 Assistance with Respiratory Ventilation, 24-96 Consecutive Hours, Continuous Positive Airway Pressure (ICD-10-PCS; 2024-07-23)
PROC: 5A0945A Assistance with Respiratory Ventilation, 24-96 Consecutive Hours, High Flow/Velocity Cannula (ICD-10-PCS; 2024-07-23)
DX: A41.9 Sepsis, unspecified organism (principal); I50.33 Acute on chronic diastolic (congestive) heart failure; J96.21 Acute and chronic respiratory failure with hypoxia; J96.22 Acute and chronic respiratory failure with hypercapnia; N17.0 Acute kidney failure with tubular necrosis; J18.9 Pneumonia, unspecified organism; G92.8 Other toxic encephalopathy; R65.21 Severe sepsis with septic shock; I13.0 Hypertensive heart and chronic kidney disease with heart failure and stage 1 through stage 4 chronic kidney disease, or unspecified chronic kidney disease; E66.2 Morbid (severe) obesity with alveolar hypoventilation; Z68.44 Body mass index [BMI] 60.0-69.9, adult; E87.3 Alkalosis; E87.29 Other acidosis; E87.0 Hyperosmolality and hypernatremia; I16.9 Hypertensive crisis, unspecified; E87.4 Mixed disorder of acid-base balance; N18.9 Chronic kidney disease, unspecified; E78.5 Hyperlipidemia, unspecified; E87.6 Hypokalemia; E87.5 Hyperkalemia; D63.8 Anemia in other chronic diseases classified elsewhere; E86.0 Dehydration; T38.0X5A Adverse effect of glucocorticoids and synthetic analogues, initial encounter; R73.9 Hyperglycemia, unspecified; G35 Multiple sclerosis; Z99.81 Dependence on supplemental oxygen; Z79.82 Long term (current) use of aspirin; Z79.899 Other long term (current) drug therapy; Y92.89 Other specified places as the place of occurrence of the external cause
CPT/HCPCS: 31500; 31720; 36415; 36573; 36600; 71045; 80048; 80305; 80320; 82375; 82805; 82962; 83605; 83880; 84145; 84478; 84484; 85025; 85379; 86705; 87070; 87340; 87804; 90732; 93005; 93306; 93308; 94002; 94003; 94070; 94640; 94660; 94664; 94760; 97163; 98960; 99291; A4606; A6261; C1725; C1769; J0360; J0456; J0696; J1120; J1650; J1815; J1938; J2003; J2250; J2470; J2543; J2704; J2919; J3480; J3490; J7512; A5200; G0480

== ENCOUNTER 2024-12-22 10:33 | Inpatient (IN) | payer MEDICARE, MEDICAID ==
[~2024-12-22] VITALS: Ht 154.9 cm; Wt 122.5 kg
[2024-12-22 10:38] VITALS: O2SAT 100
[2024-12-22] MEDS: SODIUM CHLORIDE 0.9% (SEPSIS BOLUS) IV ONE (11:02)
[2024-12-22 11:36] LABS: INR 1.4
[2024-12-22 11:39] LABS: BASOPHILS % 0.5 % (0.0-2.0); EOSINOPHILS % 1.0 % (0.0-5.0); HEMATOCRIT. 24.8 % (36.0-48.0); HEMOGLOBIN. 7.2 g/dL (12.0-16.0); LYMPHOCYTES % 40.8 % (20.0-50.0); MEAN PLATELET VOLUME 8.5 fl (7.4-10.4); MONOCYTES % 7.7 % (2.0-8.0); NEUTROPHILS % 50.0 % (40.0-76.0); PLATELET 345 x1000/uL (130-400); RED BLOOD CELL COUNT 3.08 mill/uL (4.2-5.4); RED CELL DISTRIBUTION WIDTH 21.2 % (11.6-14.6); UREA NITROGEN BLOOD 26 mg/dL (9-23)
[2024-12-22 11:41] LABS: ASPARTATE AMINOTRANSFERASE 56 IU/L (<34); BILIRUBIN DIRECT 0.4 mg/dL (<=3.0); BILIRUBIN TOTAL 0.7 mg/dL (0.1-1.0); PROTEIN TOTAL 5.0 g/dL (6.0-8.3)
[2024-12-22] MEDS: PIPERACILLIN/TAZO 3.375G/50ML 50 ML IV ONE (11:48)
[2024-12-22 12:00] LABS: CREATININE 2.8 mg/dL (0.6-1.0)
[2024-12-22] MEDS: VANCOMYCIN 1G PREMIX 200 ML IV ONE (12:26)
[2024-12-22] MEDS ORDERED: IPRATROPIUM/ALBUTEROL 0.5-3(2.5)MG/3ML NEB HHN PRN (14:15)
[2024-12-22] MEDS ORDERED: ACETAMINOPHEN 650MG/20.3ML UDC GT PRN (14:15)
[2024-12-22] MEDS ORDERED: ONDANSETRON HCL 4MG/2ML INJ IV PRN (14:15)
[2024-12-22] MEDS ORDERED: MAGNESIUM/ALUMINUM HYDROXIDE/SIMETHICONE 30ML UDC PO PRN (14:15)
[2024-12-22] MEDS ORDERED: DOCUSATE SODIUM 100MG CAPSULE PO PRN (14:15)
[2024-12-22] MEDS ORDERED: GUAIFENESIN 200MG/10ML SUGAR FREE UDC PO PRN (14:15)
[2024-12-22] MEDS: PANTOPRAZOLE SODIUM 40 MG/VIAL IV SCH (15:55)
[2024-12-22] MEDS: SODIUM CHLORIDE 0.9% 1,000 ML IV SCH (15:55)
[2024-12-22 16:00] VITALS: BP 121/52; PULSE 96; RESP 19; TEMP 36.2; O2SAT 100
[2024-12-22] MEDS: VANCOMYCIN 1GM PMX (XELLIA) 200 ML IV SCH (17:24)
[2024-12-22] MEDS: ASPIRIN 81MG EC TABLET PO SCH (17:24)
[2024-12-22 20:00] VITALS: BP 99/54; PULSE 96; RESP 20; TEMP 36; O2SAT 100
[2024-12-22] MEDS: PIPERACILLIN/TAZO 3.375G/50ML 50 ML IV SCH (21:37)
[2024-12-22] MEDS: ATORVASTATIN CALCIUM 40MG TABLET PO SCH (21:37)
[2024-12-22] MEDS: ACETAMINOPHEN 325MG TABLET PO PRN (21:37)
[2024-12-23] VITALS (11 sets, daily range): BP systolic 94–110; BP diastolic 42–70; PULSE 85–97; RESP 16–20; TEMP 35.9–36.6; O2SAT 99–100
[2024-12-23 03:31] LABS: CLARITY URINE TURBID (CLEAR); COLOR URINE YELLOW (YELLOW); GLUCOSE URINE NEGATIVE (NEGATIVE); KETONES URINE TRACE (NEGATIVE); LEUKOCYTE ESTERASE URINE 3+ (NEGATIVE); NITRITE URINE NEGATIVE (NEGATIVE); OCCULT BLOOD URINE TRACE (NEGATIVE); PH URINE 5.0 (4.5-8.0); PROTEIN URINE 2+ (NEGATIVE); SPECIFIC GRAVITY URINE 1.017 (1.005-1.030); UROBILINOGEN URINE 0.2 E.U./dL (0.2-1.0)
[2024-12-23 04:10] LABS: *AMPHETAMINES SCREEN URINE NEGATIVE (NEGATIVE); *BARBITURATES SCREEN URINE NEGATIVE (NEGATIVE); *BENZODIAZEPINES SCREEN URINE NEGATIVE (NEGATIVE); *COCAINE SCREEN URINE NEGATIVE (NEGATIVE); CANNABINOID URINE SCREEN NEGATIVE (NEGATIVE); ECSTASY MDMA SCREEN URINE NEGATIVE (NEGATIVE); METHADONE URINE SCREEN NEGATIVE (NEGATIVE); OPIATES URINE SCREEN NEGATIVE (NEGATIVE); PHENCYCLIDINE URINE SCREEN NEGATIVE (NEGATIVE)
[2024-12-23 04:40] LABS: BACTERIA URINE TRACE; SQUAMOUS EPITHELIAL CELL URINE 1+ /lpf (RARE/1+); WBC URINE TNTC /hpf (0-2)
[2024-12-23 07:06] LABS: BASOPHILS % 0.4 % (0.0-2.0); EOSINOPHILS % 1.5 % (0.0-5.0); LYMPHOCYTES % 28.5 % (20.0-50.0); MEAN PLATELET VOLUME 8.0 fl (7.4-10.4); MONOCYTES % 11.6 % (2.0-8.0); NEUTROPHILS % 58.0 % (40.0-76.0); PLATELET 323 x1000/uL (130-400); RED BLOOD CELL COUNT 2.55 mill/uL (4.2-5.4); RED CELL DISTRIBUTION WIDTH 20.4 % (11.6-14.6)
[2024-12-23 07:21] LABS: CREATININE 2.9 mg/dL (0.6-1.0)
[2024-12-23 07:22] LABS: LDL CHOLESTEROL 37.0 mg/dL (5-100); TRIGLYCERIDE 139.0 mg/dL (0-150); UREA NITROGEN BLOOD 34.0 mg/dL (9-23)
[2024-12-23 07:24] LABS: T4 FREE 1.67 ng/dL (0.89-1.76)
[2024-12-23 07:52] LABS: HEMATOCRIT. 20.0 % (36.0-48.0); HEMOGLOBIN. 6.2 g/dL (12.0-16.0)
[2024-12-23] MEDS ORDERED: LIDOCAINE HCL 1% 10 MG/ML 10ML VIAL ONE (09:05)
[2024-12-23 10:04] LABS: BG BASE EXCESS -5.2 mmol/L (-2.0-3.0); BG CARBOXYHEMOGLOBIN 2.3 % (0.5-1.5); BG DEOXYHEMOGLOBIN 1.3 % (0.0-5.0); BG FRACTION INSPIRED OXYGEN 21; BG HCO3 ACT 18.4 mmol/L (21.0-28.0); BG METHEMOGLOBIN 0.4 % (0.5-1.5); BG OXYGEN SATURATION 98.7 % (94.0-98.0); BG OXYHEMOGLOBIN 96.0 % (94.0-98.0); BG PCO2 28.0 mmHg (32.0-45.0); BG PH 7.436 (7.350-7.450); BG PO2 114.6 mmHg (83.0-108.0); BG SAMPLE SITE LEFT RADIAL; BG TOTAL HEMOGLOBIN 6.5 g/dL (12.0-16.0); BG VENT MODE ROOM AIR
[2024-12-23] MEDS: NYSTATIN POWDER 15GM TOP SCH (19:03)
[2024-12-23] MEDS: PANTOPRAZOLE SODIUM 40 MG/VIAL IV SCH (20:42)
[2024-12-24] VITALS (11 sets, daily range): BP systolic 100–131; BP diastolic 47–78; PULSE 81–104; RESP 16–19; TEMP 36.2–36.6; O2SAT 96–100
[2024-12-24 10:32] LABS: INR 1.3
[2024-12-24 10:33] LABS: BASOPHILS % 0.3 % (0.0-2.0); EOSINOPHILS % 0.6 % (0.0-5.0); LYMPHOCYTES % 16.3 % (20.0-50.0); MEAN PLATELET VOLUME 7.7 fl (7.4-10.4); MONOCYTES % 10.8 % (2.0-8.0); NEUTROPHILS % 72.0 % (40.0-76.0); PLATELET 282 x1000/uL (130-400); RED BLOOD CELL COUNT 2.46 mill/uL (4.2-5.4); RED CELL DISTRIBUTION WIDTH 19.1 % (11.6-14.6)
[2024-12-24 10:43] LABS: HEMATOCRIT. 19.7 % (36.0-48.0); HEMOGLOBIN. 6.3 g/dL (12.0-16.0)
[2024-12-24 10:54] LABS: CREATININE 3.2 mg/dL (0.6-1.0); UREA NITROGEN BLOOD 40 mg/dL (9-23)
[2024-12-24 10:56] LABS: PHOSPHORUS 4.8 mg/dL (2.5-4.9)
[2024-12-24] MEDS ORDERED: MAGNESIUM 2 G PREMIX 50 ML IV NR (17:30)
[2024-12-24] MEDS: SUCRALFATE 1G TABLET PO SCH (21:18)
[2024-12-25] VITALS: BP 113/68; PULSE 96; RESP 18; TEMP 36; O2SAT 100
[2024-12-25] MEDS: VANCOMYCIN 1GM/200ML PMX (BAXTER) IV SCH (02:26)
[2024-12-25 04:00] VITALS: BP 132/68; PULSE 95; RESP 18; TEMP 36.2; O2SAT 99
[2024-12-25 08:00] VITALS: BP 114/61; PULSE 88; RESP 18; TEMP 36.4; O2SAT 100
[2024-12-25] MEDS: MAGNESIUM 2 G PREMIX 50 ML IV NR (09:36)
[2024-12-25 09:41] LABS: BASOPHILS % 0.3 % (0.0-2.0); EOSINOPHILS % 0.9 % (0.0-5.0); HEMATOCRIT. 29.3 % (36.0-48.0); HEMOGLOBIN. 9.5 g/dL (12.0-16.0); LYMPHOCYTES % 16.1 % (20.0-50.0); MEAN PLATELET VOLUME 8.2 fl (7.4-10.4); MONOCYTES % 11.0 % (2.0-8.0); NEUTROPHILS % 71.7 % (40.0-76.0); PLATELET 272 x1000/uL (130-400); RED BLOOD CELL COUNT 3.60 mill/uL (4.2-5.4); RED CELL DISTRIBUTION WIDTH 18.8 % (11.6-14.6)
[2024-12-25 09:57] LABS: CREATININE 3.2 mg/dL (0.6-1.0)
[2024-12-25 09:58] LABS: UREA NITROGEN BLOOD 47 mg/dL (9-23)
[2024-12-25 12:00] VITALS: BP 102/48; PULSE 89; RESP 18; TEMP 36.3; O2SAT 98
[2024-12-25] MEDS: MAGNESIUM 2 G PREMIX 50 ML IV SCH (14:28)
[2024-12-25 16:00] VITALS: BP 98/66; PULSE 93; RESP 19; TEMP 36.3; O2SAT 99
[2024-12-25] MEDS: FUROSEMIDE 40MG/4ML VIAL IVP NR (17:28)
[2024-12-25] MEDS: CITRIC ACID/SODIUM CITRATE SOLN 30ML UDC PO SCH (17:29)
[2024-12-25 19:29] LABS: FOLIC ACID (FOLATE) SERUM 6.36 ng/mL (>5.38); VITAMIN B12 SERUM 1497 pg/mL (211-911)
[2024-12-25 20:00] VITALS: BP 105/57; PULSE 72; RESP 18; TEMP 36.1; O2SAT 100
[2024-12-25] MEDS: PIPERACILLIN/TAZO 3.375G/50ML 50 ML IV SCH (22:47)
[2024-12-26] VITALS: BP 132/72; PULSE 88; RESP 18; TEMP 36.4; O2SAT 100
[2024-12-26 04:00] VITALS: BP 97/49; PULSE 94; RESP 18; TEMP 36; O2SAT 100
[2024-12-26] MEDS ORDERED: NALOXONE HCL 0.4MG/ML VIAL IV PRN (04:00)
[2024-12-26] MEDS: MIDODRINE HCL 5MG TABLET PO PRN (06:10)
[2024-12-26] MEDS: HYDROCODONE/ACETAMINOPHEN 5/325MG TABLET PO PRN (06:11)
[2024-12-26 06:54] LABS: CREATININE 3.3 mg/dL (0.6-1.0); UREA NITROGEN BLOOD 33 mg/dL (9-23)
[2024-12-26 06:56] LABS: PHOSPHORUS 5.4 mg/dL (2.5-4.9)
[2024-12-26 07:24] LABS: PLATELET 270 x1000/uL (130-400); RED BLOOD CELL COUNT 3.66 mill/uL (4.2-5.4); RED CELL DISTRIBUTION WIDTH 19.1 % (11.6-14.6)
[2024-12-26 08:00] VITALS: BP 94/52; PULSE 94; RESP 16; TEMP 35.9; O2SAT 99
[2024-12-26] MEDS: FOLIC ACID 1MG TABLET PO SCH (08:36)
[2024-12-26] MEDS ORDERED: SODIUM CHLORIDE 0.45% 250 ML IV ONE (08:45)
[2024-12-26] MEDS ORDERED: SODIUM CHLORIDE 0.9% 250 ML IV ONE (09:00)
[2024-12-26] MEDS: SODIUM CHLORIDE 0.9% 250 ML IV ONE (09:15)
[2024-12-26 12:00] VITALS: BP 113/55; PULSE 78; RESP 16; TEMP 36.2; O2SAT 99
[2024-12-26] MEDS ORDERED: MAGNESIUM 2 G PREMIX 50 ML IV ONE (13:15)
[2024-12-26 16:00] VITALS: BP 96/51; PULSE 90; RESP 17; TEMP 36.4; O2SAT 98
[2024-12-26 20:00] VITALS: BP 101/84; PULSE 100; RESP 18; TEMP 36.1; O2SAT 97
[2024-12-27] VITALS: BP 103/54; PULSE 101; RESP 20; TEMP 36.6; O2SAT 100
[2024-12-27] MEDS: CALCIUM CARBONATE/VITAMIN D3 500MG TABLET PO SCH (01:00)
[2024-12-27 04:00] VITALS: BP 93/47; PULSE 109; RESP 20; TEMP 36.1; O2SAT 100
[2024-12-27 08:00] VITALS: BP 95/49; PULSE 97; RESP 18; TEMP 36.4; O2SAT 99
[2024-12-27 08:53] LABS: PLATELET 296 x1000/uL (130-400); RED BLOOD CELL COUNT 3.52 mill/uL (4.2-5.4); RED CELL DISTRIBUTION WIDTH 19.1 % (11.6-14.6)
[2024-12-27 09:04] LABS: CREATININE 3.2 mg/dL (0.6-1.0); UREA NITROGEN BLOOD 40 mg/dL (9-23)
[2024-12-27 09:06] LABS: ASPARTATE AMINOTRANSFERASE 35 IU/L (<34); BILIRUBIN DIRECT 0.3 mg/dL (<=3.0); BILIRUBIN TOTAL 0.5 mg/dL (0.1-1.0); PROTEIN TOTAL 4.2 g/dL (6.0-8.3)
[2024-12-27] MEDS: POTASSIUM CHLORIDE 20MEQ TABLET SR PO SCH (11:11)
[2024-12-27 12:00] VITALS: BP 94/54; PULSE 94; RESP 18; TEMP 36.2; O2SAT 100
[2024-12-27] MEDS: LACTATED RINGERS 500 ML IV ONE (15:54)
[2024-12-27 16:00] VITALS: BP 103/54; PULSE 96; RESP 18; TEMP 36.5; O2SAT 99
[2024-12-27 20:00] VITALS: BP 105/50; PULSE 103; RESP 20; TEMP 36.1; O2SAT 99
[2024-12-27] MEDS: SENNOSIDES 8.6MG TABLET PO SCH (21:57)
[2024-12-28] VITALS: BP 98/45; PULSE 94; RESP 19; TEMP 36.2; O2SAT 100
[2024-12-28 04:00] VITALS: BP 95/47; PULSE 94; RESP 19; TEMP 36.6; O2SAT 100
[2024-12-28 07:05] LABS: BASOPHILS % 0.2 % (0.0-2.0); EOSINOPHILS % 1.0 % (0.0-5.0); HEMATOCRIT. 26.0 % (36.0-48.0); HEMOGLOBIN. 8.7 g/dL (12.0-16.0); LYMPHOCYTES % 21.6 % (20.0-50.0); MEAN PLATELET VOLUME 7.8 fl (7.4-10.4); MONOCYTES % 10.6 % (2.0-8.0); NEUTROPHILS % 66.6 % (40.0-76.0); PLATELET 261 x1000/uL (130-400); RED BLOOD CELL COUNT 3.23 mill/uL (4.2-5.4); RED CELL DISTRIBUTION WIDTH 19.5 % (11.6-14.6)
[2024-12-28 07:06] LABS: CREATININE 3.2 mg/dL (0.6-1.0)
[2024-12-28 07:07] LABS: UREA NITROGEN BLOOD 38 mg/dL (9-23)
[2024-12-28 07:09] LABS: PHOSPHORUS 5.5 mg/dL (2.5-4.9)
[2024-12-28 08:00] VITALS: BP 108/74; PULSE 96; RESP 18; TEMP 36.6; O2SAT 96
[2024-12-28] MEDS: POTASSIUM CHLORIDE 20MEQ TABLET SR PO NR (08:48)
[2024-12-28] MEDS: KCL 20MEQ/100ML PREMIX 100 ML IV SCH (08:49)
[2024-12-28] MEDS ORDERED: MULT-1146 PO (14:39)
[2024-12-28] MEDS ORDERED: MIDO5TAB4 PO (14:39)
[2024-12-28] MEDS ORDERED: FOLI-43 PO (14:39)
[2024-12-28] MEDS ORDERED: POTA-189 PO (14:39)
[2024-12-28] MEDS ORDERED: LIP40 PO (14:39)
[2024-12-28] MEDS ORDERED: AM250 PO (14:39)
[2024-12-28 15:37] LABS: BASOPHILS % 0.4 % (0.0-2.0); EOSINOPHILS % 0.3 % (0.0-5.0); HEMATOCRIT. 28.7 % (36.0-48.0); HEMOGLOBIN. 9.2 g/dL (12.0-16.0); LYMPHOCYTES % 11.0 % (20.0-50.0); MEAN PLATELET VOLUME 8.0 fl (7.4-10.4); MONOCYTES % 9.4 % (2.0-8.0); NEUTROPHILS % 78.9 % (40.0-76.0); PLATELET 284 x1000/uL (130-400); RED BLOOD CELL COUNT 3.51 mill/uL (4.2-5.4); RED CELL DISTRIBUTION WIDTH 20.0 % (11.6-14.6)
[2024-12-28 15:51] LABS: CREATININE 3.4 mg/dL (0.6-1.0); UREA NITROGEN BLOOD 38.0 mg/dL (9-23)
[2024-12-28 16:00] VITALS: BP 117/58; PULSE 90; RESP 18; TEMP 36.3; O2SAT 100
[2024-12-28 16:39] VITALS: BP 117/58; PULSE 90; TEMP 97.3
[2024-12-28] MEDS: CALCIUM CARBONATE/VITAMIN D3 500MG TABLET PO SCH (17:31)
[2024-12-28 20:00] VITALS: BP 125/64; PULSE 111; RESP 20; TEMP 35.7; O2SAT 96
== END 2024-12-28 22:20 | disposition home health service (06) | DRG 871 ==
LOC: ER 10:33 → 6WST 13:23 → EDBEDREQ 13:27 → EDBEDREQTM 13:27 → 6WST 14:51 → UNDODISIN 12-24 11:40
PROVIDERS: ADMIT Internal Medicine; ATTEND Internal Medicine
PROC: 02HV33Z Insertion of Infusion Device into Superior Vena Cava, Percutaneous Approach (ICD-10-PCS; principal; 2024-12-23)
PROC: B548ZZA Ultrasonography of Superior Vena Cava, Guidance (ICD-10-PCS; 2024-12-23)
PROC: 30243N1 Transfusion of Nonautologous Red Blood Cells into Central Vein, Percutaneous Approach (ICD-10-PCS; 2024-12-23)
DX: A41.9 Sepsis, unspecified organism (principal); G92.8 Other toxic encephalopathy; L89.323 Pressure ulcer of left buttock, stage 3; L89.313 Pressure ulcer of right buttock, stage 3; R65.21 Severe sepsis with septic shock; E87.20 Acidosis, unspecified; E44.0 Moderate protein-calorie malnutrition; L89.156 Pressure-induced deep tissue damage of sacral region; N17.9 Acute kidney failure, unspecified; N39.0 Urinary tract infection, site not specified; K92.1 Melena; I13.0 Hypertensive heart and chronic kidney disease with heart failure and stage 1 through stage 4 chronic kidney disease, or unspecified chronic kidney disease; E66.2 Morbid (severe) obesity with alveolar hypoventilation; D50.9 Iron deficiency anemia, unspecified; E11.22 Type 2 diabetes mellitus with diabetic chronic kidney disease; N18.9 Chronic kidney disease, unspecified; K76.0 Fatty (change of) liver, not elsewhere classified; E05.90 Thyrotoxicosis, unspecified without thyrotoxic crisis or storm; Z68.43 Body mass index [BMI] 50.0-59.9, adult; E04.1 Nontoxic single thyroid nodule; E11.51 Type 2 diabetes mellitus with diabetic peripheral angiopathy without gangrene; E87.5 Hyperkalemia; E83.42 Hypomagnesemia; I45.10 Unspecified right bundle-branch block; K80.20 Calculus of gallbladder without cholecystitis without obstruction; I50.9 Heart failure, unspecified; E78.5 Hyperlipidemia, unspecified; E87.6 Hypokalemia; I25.10 Atherosclerotic heart disease of native coronary artery without angina pectoris; L30.4 Erythema intertrigo; N28.1 Cyst of kidney, acquired; F41.9 Anxiety disorder, unspecified; Z74.01 Bed confinement status; Z79.82 Long term (current) use of aspirin; Z79.899 Other long term (current) drug therapy; Z82.49 Family history of ischemic heart disease and other diseases of the circulatory system
CPT/HCPCS: 36415; 36573; 36600; 71045; 76700; 76770; 80048; 80061; 80076; 80202; 80305; 81003; 82150; 82270; 82375; 82550; 82607; 82728; 82746; 82805; 82962; 83540; 83550; 83605; 83735; 83880; 84100; 84145; 84439; 84443; 84481; 85014; 85018; 85025; 85027; 85044; 85384; 86850; 86900; 86920; 87077; 93005; 93306; 93922; 93970; 96365; 96367; 97163; 97166; 99291; C1725; J2003; J2470; J2543; J3373; J3475; J3480; J7030; J7120; P9016